=== PATIENT | male | born 1965 | race American Indian/Alaskan Native ===

== ENCOUNTER 2018-01-11 07:07 | Emergency (ER) | payer OTHER ==
[2018-01-11 07:15] VITALS: BP 155/89
--- NOTE | 2018-01-11 07:53 | Emergency Department Report ---
Upper Extremity - HPI Chief Complaint: Extremity Injury, Upper Stated Complaint: LT ARM PAIN Time Seen by Provider: 01/11/18 07:27 Upper Extremity: Left Elbow (swelling over olecranon, pain) Occurred When: >5 Days (1 week) Mechanism: Hit with Object Severity: moderate Symptoms: Yes Pain with Movement, Yes Limited Range of Movement, Yes Swelling, Yes Bruising/Ecchymosis, Yes Laceration or Abrasion, No Numbness, No Weakness Other History: This patient is a 52 y.o. male that presents with painful, swollen left elbow. He remember hiting elbow on something about 1 week ago. The pain was tolerable the first couple days. About 2-3 days after injury the elbow began to swell and he noticed a healed scab over the area. The pain is worse at the end of flexion and abduction. He is having difficulty reaching and sleeping. He complains of pain over the lateral olecranon area. He rates pain as 6/10 with movement or pressure. Denies numbness/tingling, fever, redness, or discharge. ED Review of Systems ROS: Stated complaint: LT ARM PAIN Other details as noted in HPI Constitutional: denies: chills, fever Respiratory: denies: cough, shortness of breath, wheezing Cardiovascular: denies: chest pain, palpitations, dyspnea on exertion Gastrointestinal: denies: abdominal pain, nausea, diarrhea Musculoskeletal: joint swelling (left elbow). denies: back pain, arthralgia Neurological: denies: headache, weakness, numbness, paresthesias ED Past Medical Hx - Past Medical History Hx Hypertension: Yes Hx Diabetes: Yes - Surgical History Past Surgical History?: No - Social History Smoking Status: Never Smoker Substance Use Type: Alcohol - Medications Home Medications: Home Medications Medication Instructions Recorded Confirmed Last Taken Type Glimepiride [Amaryl] 4 mg PO DAILY 30 Days tablet 01/11/18 Unknown Rx Indomethacin 50 mg PO Q8H PRN #20 capsule 01/11/18 Unknown Rx Prednisone [predniSONE 10 mg 10 mg PO .TAPER #1 tab.ds.pk 01/11/18 Unknown Rx (6-Day Pack, 21 Tabs)] Upper Extremity Exam - Exam General: Vital signs noted. No distress. Alert and acting appropriately. Head and Torso: Yes HEENT Abnormality, No Neck Tenderness, No Chest/Lungs Abnormality, No Abdominal Tenderness, No Back Tenderness Shoulder Exam: No Shoulder Tenderness, No Clavicle Tenderness, No Normal Range of Motion in Shoulder, No Shoulder Deformity, No AC Joint Tenderness Arm Exam: No Arm/Humerus Tenderness, No Arm Deformity Elbow: Yes Elbow Tenderness (Swelling over olecranon, Significant pain with ROM) , Yes Normal Range of Motion in Elbow (ROM limited to 60 degrees actively. Passive about 90 degrees.), No Elbow Deformity Forearm: No Forearm Tenderness, No Forearm Deformity, No Pain with Pronation, No Pain with Supination Wrist: Yes Normal ROM in Wrist, No Wrist Tenderness, No Wrist Deformity, No Snuffbox Tenderness, No Pain with Axial Thumb Compression Hand: Yes Normal ROM in Digit(s), No Hand Tenderness, No Hand Deformity, No Digit Tenderness, No Digit(s) Deformity, No Tendon Dysfunction CMS Exam: Yes Normal Distal Pulses, Yes Normal Capillary Refill, Yes Normal Distal Sensation, No Broken Skin ED Course Vital Signs 01/11/18 07:13 Temperature 98.9 F Pulse Rate 83 Respiratory 20 Rate Blood Pressure 155/89 O2 Sat by Pulse 99 Oximetry ED Medical Decision Making - Lab Data Result diagrams: 01/11/18 08:12 - Radiology Data Radiology results: report reviewed Left Elbow Xray Findings: There is no definite joint effusion noted. Soft tissue swelling is noted. There is tiny 2 mm fragment identified at the elbow joint between the radial head and the coracoid process of ulna probably related to recent or old injury. - Medical Decision Making This is a 52 y.o. male that presents with swelling over left olecranon area and pain with movement for 1 week. Hx of DM2 & HTN. He hit left elbow on something, not sure what object. Patient is stable and examined by me. Obtained BMP and Uric acid. Uric acid 9.0, glucose 231. Patient took personal metformin and glimperide in ER. Completed last glimperide pill and request refill until he get to PCP. Xray of left elbow. Findings: There is no definite joint effusion noted. Soft tissue swelling is noted. There is tiny 2 mm fragment identified at the elbow joint between the radial head and the coracoid process of ulna probably related to recent or old injury. No acute signs of distress noted. Given prednisone 50 mg po, ibuprofen 800 mg po once in ER for gout. Discussed plan to start prednisone taper and indomethacin 50 mg po tid with patient. Educated patient and spouse on low purine diet and given handout. Referral to Orthopedic for f/u of elbow injury. Patient agrees to ED plan of care. Discharged home and follow up with PCP in 3 days. Critical care attestation.: If time is entered above; I have spent that time in minutes in the direct care of this critically ill patient, excluding procedure time. ED Disposition Clinical Impression: Pain and swelling of left elbow Gout attack Qualifiers: Gout site: elbow Gout etiology: idiopathic Laterality: left Qualified Code(s): M10.022 - Idiopathic gout, left elbow Fracture of left elbow with delayed healing Qualifiers: Fracture type: closed Qualified Code(s): S42.402G - Unspecified fracture of lower end of left humerus, subsequent encounter for fracture with delayed healing Disposition: TO HOME OR SELFCARE Is pt being admited?: No Does the pt Need Aspirin: No Condition: Stable Instructions: Low Purine Diet (ED), Acute Gouty Arthritis (ED) Additional Instructions: Avoid foods that have a high purine content such as alcohol, organ meats, and seafood can cause higher risk of elevated uric acid and gout. Reduce intake of alcohol, especially beer, lowers the risk of gout. Reduce the intake of vegetables high in purines such as asparagus, spinach, and mushrooms. Dairy products reduce the risk of gout. Follow up with primary care provider in 2-3 days. Prescriptions: Glimepiride [Amaryl] 4 mg PO DAILY 30 Days tablet Indomethacin 50 mg PO Q8H PRN #20 capsule PRN Reason: Pain Prednisone [predniSONE 10 mg (6-Day Pack, 21 Tabs)] 10 mg PO .TAPER #1 tab.ds.pk Referrals: [facility] [Outside] - 3-5 Days [facility] [Outside] - 3-[address] [facility] [Outside] - 3-5 Days ANTHONY MARTINO MD [Staff Physician] - 3-5 Days Time of Disposition: 09:25 Print Language: SINHALA
[2018-01-11 08:57] LABS: BUN/Creatinine Ratio 20; Blood Urea Nitrogen 20 mg/dL (9-20); Calcium 9.3 mg/dL (8.4-10.2); Hemolysis Index 8
[2018-01-11] MEDS ORDERED: MOTRIN PO ONE (09:04)
[2018-01-11] MEDS ORDERED: DELTASONE PO ONE (09:04)
--- NOTE | 2018-01-11 09:21 | XRay Report ---
Left elbow 3 views: History: Swollen elbow pain injury. Findings: There is no definite joint effusion noted. Soft tissue swelling is noted. There is tiny 2 mm fragment identified at the elbow joint between the radial head and the coracoid process of ulna probably related to recent or old injury. Impression: Findings as detailed above.
== END 2018-01-11 09:41 | disposition home or self-care (01) ==
LOC: ED 07:07
DX: M10.022 Idiopathic gout, left elbow (principal); S42.402G Unspecified fracture of lower end of left humerus, subsequent encounter for fracture with delayed healing; I10 Essential (primary) hypertension; E11.9 Type 2 diabetes mellitus without complications; Z91.013 Allergy to seafood; Y93.89 Activity, other specified; Y92.89 Other specified places as the place of occurrence of the external cause; Y99.8 Other external cause status
CPT/HCPCS: 36415; 73080; 80048; 84550; 99283; J7512

== ENCOUNTER 2018-01-24 09:41 | Inpatient (IN) | payer OTHER ==
[2018-01-24 10:22] LABS: Basophils % (Auto) 0.4 % (0.0-1.8); Eosinophils # (Auto) 0.1 K/mm3 (0.0-0.4); Eosinophils % (Auto) 1.5 % (0.0-4.3); Hematocrit 36.4 % (35.5-45.6); Hemoglobin 11.5 gm/dl (11.8-15.2); Lymphocytes # (Auto) 0.6 K/mm3 (1.2-5.4); Lymphocytes % (Auto) 6.5 % (13.4-35.0); Mean Corpuscular HGB Conc 32 % (32-34); Mean Corpuscular Volume 78 fl (84-94); Monocytes # (Auto) 0.7 K/mm3 (0.0-0.8); Monocytes % (Auto) 7.1 % (0.0-7.3); Platelet Count 451 K/mm3 (140-440); Red Blood Count 4.69 M/mm3 (3.65-5.03); Red Cell Distribution Width 13.1 % (13.2-15.2)
[2018-01-24 10:26] LABS: Mean Corpuscular Hemoglobin 25 pg (28-32)
[2018-01-24 11:05] LABS: Calcium 9.3 mg/dL (8.4-10.2)
[2018-01-24] MEDS ORDERED: NACL 0.9% 1000 ML 2,000 ML IV ONE (11:05)
[2018-01-24] MEDS ORDERED: NACL 0.9% 1000 ML 1,000 ML IV ONE (11:15)
[2018-01-24] MEDS ORDERED: HumuLIN R IV ONE ×2 (11:15→13:34)
[2018-01-24] MEDS ORDERED: BOOSTRIX IM ONE (12:26)
[2018-01-24 12:55] LABS: Alanine Aminotransferase 9 units/L (7-56); Albumin 2.4 g/dL (3.9-5)
[2018-01-24 12:56] LABS: Bilirubin,Direct < 0.2 mg/dL (0-0.2)
[2018-01-24] MEDS ORDERED: VANCOMYCIN PHARMACY TO DOSE IV SCH (13:00)
[2018-01-24 13:17] LABS: INR 0.98 (0.87-1.13)
[2018-01-24 13:18] LABS: Partial Thromboplastin Time 28.1 Sec. (24.2-36.6)
[2018-01-24] MEDS: VANCOMYCIN 1,500 MG in NACL 0.9% 500 ML 500 ML IV SCH (13:21)
[2018-01-24 13:28] LABS: Creatine Kinase MB 1.8 ng/mL (0.0-4.0)
--- NOTE | 2018-01-24 13:57 | XRay Report ---
AP CHEST: HISTORY: Fever, sepsis AP view of the chest demonstrates a normal mediastinal and cardiac contour with clear lungs and normal bony and soft tissue structures. IMPRESSION: Unremarkable AP chest.
--- NOTE | 2018-01-24 13:58 | XRay Report ---
LEFT ELBOW, 2 VIEWS History: Elbow pain. Cellulitis. Findings: Normal bone mineralization. No acute osseous findings or joint pathology is identified. No significant degenerative changes. A large joint effusion is suspected. Posterior soft tissue swelling. Vascular calcifications are noted anteriorly. Impression: Soft tissue swelling. Large joint effusion. No osseous abnormality detected.
--- NOTE | 2018-01-24 13:58 | Emergency Department Report ---
ED General Adult HPI - General Chief complaint: Hyperglycemia Stated complaint: BLOOD SUGAR HIGH Time Seen by Provider: 01/24/18 11:09 Source: patient Mode of arrival: Ambulatory Limitations: No Limitations - History of Present Illness Initial comments: The patient was seen here on 01/11/2018 after hitting his elbow "on something about a week ago. He was found to have a elbow effusion, lactic acid level of 9 and no signs of infection. He was placed on Indocin and prednisone. He subsequently went to an orthopedic doctor that added allopurinol. He reports today to the emergency department because his sugar has been elevated for 2-3 days. He denies fever or chills. He did not mention the fact that his entire left arm was red and that his elbow was swollen. His stated that he had been diagnosed with gout. He has been compliant with the medicine given. He does not complain of significant elbow pain or arm discomfort. 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 He appears to have many healing mon particularly of the left forearm with some excoriation. He states he gets mon all the time at work. -: Gradual, week(s) Location: left, upper extremity (but is not complaining of pain) Improves with: none Worsens with: none Associated Symptoms: other (urinary frequency more than usual) - Related Data Previous Rx's Medication Instructions Recorded Last Taken Type Glimepiride [Amaryl] 4 mg PO DAILY 30 Days tablet 01/11/18 Unknown Rx Indomethacin 50 mg PO Q8H PRN #20 capsule 01/11/18 Unknown Rx Prednisone [predniSONE 10 mg 10 mg PO .TAPER #1 tab.ds.pk 01/11/18 Unknown Rx (6-Day Pack, 21 Tabs)] Allergies Allergy/AdvReac Type Severity Reaction Status Date / Time seafood Allergy Hives Uncoded 01/11/18 07:13 ED Review of Systems ROS: Stated complaint: BLOOD SUGAR HIGH Other details as noted in HPI Constitutional: denies: chills, fever Eyes: denies: eye pain, eye discharge, vision change ENT: denies: ear pain, throat pain Respiratory: denies: cough, shortness of breath, wheezing Cardiovascular: denies: chest pain, palpitations Endocrine: increased thirst, increased urine Gastrointestinal: denies: abdominal pain, nausea, diarrhea Genitourinary: denies: urgency, dysuria Musculoskeletal: as per HPI, joint swelling. denies: back pain Skin: as per HPI, rash, lesions Neurological: denies: headache, weakness, paresthesias Psychiatric: denies: anxiety, depression Hematological/Lymphatic: denies: easy bleeding, easy bruising ED Past Medical Hx - Past Medical History Hx Hypertension: Yes Hx Diabetes: Yes Additional medical history: GOUT which is a new diagnosis - Surgical History Past Surgical History?: No - Social History Smoking Status: Never Smoker Substance Use Type: None - Medications Home Medications: Home Medications Medication Instructions Recorded Confirmed Last Taken Type Glimepiride [Amaryl] 4 mg PO DAILY 30 Days tablet 01/11/18 Unknown Rx Indomethacin 50 mg PO Q8H PRN #20 capsule 01/11/18 Unknown Rx Prednisone [predniSONE 10 mg 10 mg PO .TAPER #1 tab.ds.pk 01/11/18 Unknown Rx (6-Day Pack, 21 Tabs)] ED Physical Exam - General Limitations: No Limitations General appearance: alert, in no apparent distress - Head Head exam: Present: atraumatic, normocephalic - Eye Eye exam: Present: normal appearance, PERRL, EOMI. Absent: scleral icterus - ENT ENT exam: Present: mucous membranes moist - Neck Neck exam: Present: normal inspection. Absent: tenderness, meningismus - Respiratory Respiratory exam: Present: normal lung sounds bilaterally. Absent: respiratory distress - Cardiovascular Cardiovascular Exam: Present: regular rate, normal rhythm. Absent: systolic murmur, diastolic murmur, rubs, gallop - GI/Abdominal GI/Abdominal exam: Present: soft, normal bowel sounds. Absent: distended, tenderness, guarding, rebound, rigid - Rectal Rectal exam: Present: deferred - Extremities Exam Extremities exam: Present: normal inspection, normal capillary refill. Absent: full ROM (range of motion of the elbow is somewhat limited on extension.Pronation supination is full and nontender. Flexion does not cause any pain. There appears to be a joint effusion. There is also some subacromial bursal induration.), calf tenderness - Back Exam Back exam: Present: normal inspection. Absent: CVA tenderness (R), CVA tenderness (L) - Neurological Exam Neurological exam: Present: alert, oriented X3, CN II-XII intact. Absent: motor sensory deficit - Psychiatric Psychiatric exam: Present: normal affect, normal mood - Skin Skin exam: Present: warm, other (the left arm is quite erythematous from the wrist only above the elbow. It is warm. It is consistent with cellulitis. There are old mon of various degrees of hyperpigmentation and healing. There are some excoriations. There is some induration of the posterior elbow/ subacromial bursal area but no fluctuance.). Absent: rash ED Course Vital Signs 01/24/18 09:49 Temperature 97.7 F Pulse Rate 101 H Respiratory 18 Rate Blood Pressure 137/70 O2 Sat by Pulse 99 Oximetry - Reevaluation(s) Reevaluation #1: Patient given IV insulin and IV fluids. I do not believe the patient is in DKA. I will order a repeat BMP. I discussed this with Dr. Stone who is admitted the patient to the hospitalist service for further care and evaluation. I have consulted Dr. Ma and gave him a report about the clinical findings. We agreed that a tap of the elbow would not be indicated at this juncture. There is too much overlying cellulitis. Clinical exam does not suggest a septic joint. 01/24/18 14:22 Reevaluation #2: The patient was started on vancomycin. Dr. Stone was informed. Consult to Dr. Ma. The patient was given fluids and IV insulin. Repeat BMP will be ordered. 01/24/18 14:41 ED Medical Decision Making - Lab Data Result diagrams: 01/24/18 10:06 01/24/18 10:06 Laboratory Results - last 24 hr 01/24/18 01/24/18 01/24/18 09:49 10:06 10:06 WBC 9.5 RBC 4.69 Hgb 11.5 L Hct 36.4 MCV 78 L MCH 25 L MCHC 32 RDW 13.1 L Plt Count 451 H Lymph % (Auto) 6.5 L [place] % (Auto) 7.1 Eos % (Auto) 1.5 Baso % (Auto) 0.4 Lymph # 0.6 L [place] # 0.7 Eos # 0.1 Baso # 0.0 Seg Neutrophils % 84.5 H Seg Neutrophils # 8.0 H ESR PT INR APTT VBG pH Sodium 123 L Potassium 5.0 Chloride 79.0 L Carbon Dioxide 26 Anion Gap 23 BUN 53 H Creatinine 2.4 H Estimated GFR 34 BUN/Creatinine Ratio 22 Glucose 656 H* POC Glucose > 500 H Lactic Acid Calcium 9.3 Magnesium Total Bilirubin Direct Bilirubin AST ALT Alkaline Phosphatase Total Creatine Kinase CK-MB (CK-2) CK-MB (CK-2) Rel Index C-Reactive Protein NT-Pro-B Natriuret Pep Total Protein Albumin Albumin/Globulin Ratio 01/24/18 01/24/18 01/24/18 10:06 10:06 10:06 WBC RBC Hgb Hct MCV MCH MCHC RDW Plt Count Lymph % (Auto) [place] % (Auto) Eos % (Auto) Baso % (Auto) Lymph # [place] # Eos # Baso # Seg Neutrophils % Seg Neutrophils # ESR 27 PT 13.5 INR 0.98 APTT 28.1 VBG pH 7.363 Sodium Potassium Chloride Carbon Dioxide Anion Gap BUN Creatinine Estimated GFR BUN/Creatinine Ratio Glucose POC Glucose Lactic Acid Calcium Magnesium Total Bilirubin Direct Bilirubin AST ALT Alkaline Phosphatase Total Creatine Kinase CK-MB (CK-2) CK-MB (CK-2) Rel Index C-Reactive Protein NT-Pro-B Natriuret Pep Total Protein Albumin Albumin/Globulin Ratio 01/24/18 01/24/18 01/24/18 10:06 10:06 12:27 WBC RBC Hgb Hct MCV MCH MCHC RDW Plt Count Lymph % (Auto) [place] % (Auto) Eos % (Auto) Baso % (Auto) Lymph # [place] # Eos # Baso # Seg Neutrophils % Seg Neutrophils # ESR PT INR APTT VBG pH Sodium Potassium Chloride Carbon Dioxide Anion Gap BUN Creatinine Estimated GFR BUN/Creatinine Ratio Glucose POC Glucose Lactic Acid 2.50 H* Calcium Magnesium 2.30 Total Bilirubin 0.40 Direct Bilirubin < 0.2 AST 9 ALT 9 Alkaline Phosphatase 93 Total Creatine Kinase 43 L CK-MB (CK-2) 1.8 CK-MB (CK-2) Rel Index 4.1 H C-Reactive Protein 13.80 H NT-Pro-B Natriuret Pep 207.6 Total Protein 7.3 Albumin 2.4 L Albumin/Globulin Ratio 0.5 01/24/18 13:18 WBC RBC Hgb Hct MCV MCH MCHC RDW Plt Count Lymph % (Auto) [place] % (Auto) Eos % (Auto) Baso % (Auto) Lymph # [place] # Eos # Baso # Seg Neutrophils % Seg Neutrophils # ESR PT INR APTT VBG pH Sodium Potassium Chloride Carbon Dioxide Anion Gap BUN Creatinine Estimated GFR BUN/Creatinine Ratio Glucose POC Glucose 466 H Lactic Acid Calcium Magnesium Total Bilirubin Direct Bilirubin AST ALT Alkaline Phosphatase Total Creatine Kinase CK-MB (CK-2) CK-MB (CK-2) Rel Index C-Reactive Protein NT-Pro-B Natriuret Pep Total Protein Albumin Albumin/Globulin Ratio - Radiology Data Radiology results: report reviewed interpreted by me: Chest x-ray and elbow film no acute process Critical care attestation.: If time is entered above; I have spent that time in minutes in the direct care of this critically ill patient, excluding procedure time. ED Disposition Clinical Impression: Cellulitis of forearm, left, Acute renal injury, Hyperglycemia Disposition: 09 OP ADMIT IP TO THIS HOSP Is pt being admited?: Yes Does the pt Need Aspirin: Yes Condition: Stable Referrals: PRIMARY CARE, [Primary Care Provider] - 3-5 Days Time of Disposition: 14:44
[2018-01-24] MEDS ORDERED: BABY ASPIRIN PO ONE (14:44)
--- NOTE | 2018-01-24 15:04 | History and Physical Report ---
History of Present Illness Date of examination: 01/24/18 Date of admission: 01/24/18 Chief complaint: CC high blood glucose levels L arm pain and elbow swelling.3 days History of present illness: History of Present Illness: 52 y/o AAOdilon presents to the emergency department because his sugar has been elevated for 2-3 days. He denies fever or chills. Also C/o left arm being red and that his elbow is swollen. His stated that he had been diagnosed with gout. He has been compliant with the medicine given. He does not complain of significant elbow pain or arm discomfort. 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 He has many healing mon particularly of the left forearm with some excoriation. He states he gets mon all the time at work. The patient was seen here on 01/11/2018 after hitting his elbow "on something about a week ago. He was found to have a elbow effusion, lactic acid level of 9 and no signs of infection. He was placed on Indocin and prednisone. He subsequently went to an orthopedic doctor that added allopurinol. No exacerbating or relieving factors. Past Medical History Hx Hypertension: Yes Hx Diabetes: Yes Additional medical history: GOUT which is a new diagnosis Surgical History Past Surgical History?: No Social History Smoking Status: Never Smoker Substance Use Type: None Family History Htn Medications Home Medications: Home Medications Medication Instructions Recorded Confirmed Last Taken Type Glimepiride [Amaryl] 4 mg PO DAILY 30 Days tablet 01/11/18 Unknown Rx Indomethacin 50 mg PO Q8H PRN #20 capsule 01/11/18 Unknown Rx Prednisone [predniSONE 10 mg 10 mg PO .TAPER #1 tab.ds.pk 01/11/18 Unknown Rx (6-Day Pack, 21 Tabs)] Review of Systems ROS: Stated complaint: BLOOD SUGAR HIGH Other details as noted in HPI Constitutional: denies: chills, fever Eyes: denies: eye pain, eye discharge, vision change ENT: denies: ear pain, throat pain Respiratory: denies: cough, shortness of breath, wheezing Cardiovascular: denies: chest pain, palpitations Endocrine: increased thirst, increased urine Gastrointestinal: denies: abdominal pain, nausea, diarrhea Genitourinary: denies: urgency, dysuria Musculoskeletal: as per HPI, joint swelling. denies: back pain Skin: as per HPI, rash, lesions Neurological: denies: headache, weakness, paresthesias Psychiatric: denies: anxiety, depression Hematological/Lymphatic: denies: easy bleeding, easy bruising Medications and Allergies Allergies Allergy/AdvReac Type Severity Reaction Status Date / Time seafood Allergy Hives Uncoded 01/11/18 07:13 Home Medications Medication Instructions Recorded Confirmed Last Taken Type Indomethacin 50 mg PO Q8H PRN #20 capsule 01/11/18 01/24/18 01/24/18 Rx Allopurinol [Zyloprim] 100 mg PO QDAY 01/24/18 01/24/18 01/24/18 History Aspirin [Aspirin EC] 81 mg PO DAILY 01/24/18 01/24/18 01/24/18 History Losartan/Hydrochlorothiazide 1 each PO DAILY 01/24/18 01/24/18 01/24/18 History [Losartan-Hctz 100-25 mg Tab] Metformin HCl [Glucophage] 1,000 mg PO BID 01/24/18 01/24/18 01/24/18 History Multivitamin [Multiple Vitamins] 1 each PO DAILY 01/24/18 01/24/18 01/24/18 History Active Meds: Active Medications Sodium Chloride (Nacl 0.9% 1000 Ml) 1,000 mls @ 250 mls/hr IV ONCE ONE Stop: 01/24/18 15:14 Last Admin: 01/24/18 12:37 Dose: 250 mls/hr Vancomycin HCl 1,500 mg/ (Sodium Chloride) 515 mls @ 333.333 mls/hr IV Q24H [facility] Last Admin: 01/24/18 13:21 Dose: 333.333 mls/hr Vancomycin HCl (Vancomycin Pharmacy To Dose) 1 each IV PKCONSULT [facility]; Protocol Exam - Constitutional Vitals: Temp Pulse Resp BP Pulse Ox 97.7 F 101 H 18 137/70 99 01/24/18 09:49 01/24/18 09:49 01/24/18 09:49 01/24/18 09:49 01/24/18 09:49 General appearance: Present: no acute distress, well-nourished - EENT Eyes: Present: PERRL ENT: hearing intact, clear oral mucosa - Neck Neck: Present: supple, normal ROM - Respiratory Respiratory effort: normal Respiratory: bilateral: CTA - Cardiovascular Heart rate: 80 Rhythm: regular Heart Sounds: Present: S1 & S2. Absent: rub, click - Extremities Extremities: no ischemia, pulses symmetrical, No edema, abnormal (L elbow swollen and red Warm to touch) Peripheral Pulses: within normal limits - Abdominal General gastrointestinal: Present: soft, non-tender, non-distended, normal bowel sounds Male genitourinary: Present: normal - Integumentary Integumentary: Present: clear, warm, dry - Musculoskeletal Musculoskeletal: gait normal, strength equal bilaterally - Psychiatric Psychiatric: appropriate mood/affect, intact judgment & insight - Neurologic Neurologic: CNII-XII intact, moves all extremities Results - Labs CBC & Chem 7: 01/24/18 10:06 01/24/18 15:03 Labs: Laboratory Last Values WBC 9.5 K/mm3 (4.5-11.0) 01/24/18 10:06 RBC 4.69 M/mm3 (3.65-5.03) 01/24/18 10:06 Hgb 11.5 gm/dl (11.8-15.2) L 01/24/18 10:06 Hct 36.4 % (35.5-45.6) 01/24/18 10:06 MCV 78 fl (84-94) L 01/24/18 10:06 MCH 25 pg (28-32) L 01/24/18 10:06 MCHC 32 % (32-34) 01/24/18 10:06 RDW 13.1 % (13.2-15.2) L 01/24/18 10:06 Plt Count 451 K/mm3 (140-440) H 01/24/18 10:06 Lymph % (Auto) 6.5 % (13.4-35.0) L 01/24/18 10:06 [place] % (Auto) 7.1 % (0.0-7.3) 01/24/18 10:06 Eos % (Auto) 1.5 % (0.0-4.3) 01/24/18 10:06 Baso % (Auto) 0.4 % (0.0-1.8) 01/24/18 10:06 Lymph # 0.6 K/mm3 (1.2-5.4) L 01/24/18 10:06 [place] # 0.7 K/mm3 (0.0-0.8) 01/24/18 10:06 Eos # 0.1 K/mm3 (0.0-0.4) 01/24/18 10:06 Baso # 0.0 K/mm3 (0.0-0.1) 01/24/18 10:06 Seg Neutrophils % 84.5 % (40.0-70.0) H 01/24/18 10:06 Seg Neutrophils # 8.0 K/mm3 (1.8-7.7) H 01/24/18 10:06 ESR 27 mm/Hr (0-20) 01/24/18 10:06 PT 13.5 Sec. (12.2-14.9) 01/24/18 10:06 INR 0.98 (0.87-1.13) 01/24/18 10:06 APTT 28.1 Sec. (24.2-36.6) 01/24/18 10:06 VBG pH 7.363 (7.320-7.420) 01/24/18 10:06 Sodium 123 mmol/L (137-145) L 01/24/18 10:06 Potassium 5.0 mmol/L (3.6-5.0) 01/24/18 10:06 Chloride 79.0 mmol/L (98-107) L 01/24/18 10:06 Carbon Dioxide 26 mmol/L (22-30) 01/24/18 10:06 Anion Gap 23 mmol/L 01/24/18 10:06 BUN 53 mg/dL (9-20) H 01/24/18 10:06 Creatinine 2.4 mg/dL (0.8-1.5) H 01/24/18 10:06 Estimated GFR 34 ml/min 01/24/18 10:06 BUN/Creatinine Ratio 22 % 01/24/18 10:06 Glucose 656 mg/dL (75-100) H* 01/24/18 10:06 POC Glucose 466 (70-105) H 01/24/18 13:18 Lactic Acid 2.50 mmol/L (0.7-2.0) H* 01/24/18 10:06 Calcium 9.3 mg/dL (8.4-10.2) 01/24/18 10:06 Magnesium 2.30 mg/dL (1.7-2.3) 01/24/18 10:06 Total Bilirubin 0.40 mg/dL (0.1-1.2) 01/24/18 12:27 Direct Bilirubin < 0.2 mg/dL (0-0.2) 01/24/18 12:27 AST 9 units/L (5-40) 01/24/18 12:27 ALT 9 units/L (7-56) 01/24/18 12:27 Alkaline Phosphatase 93 units/L (35-129) 01/24/18 12:27 Total Creatine Kinase 43 units/L (55-170) L 01/24/18 10:06 CK-MB (CK-2) 1.8 ng/mL (0.0-4.0) 01/24/18 10:06 CK-MB (CK-2) Rel Index 4.1 (0-4) H 01/24/18 10:06 C-Reactive Protein 13.80 mg/dL (0.00-1.30) H 01/24/18 12:27 NT-Pro-B Natriuret Pep 207.6 pg/mL (0-900) 01/24/18 10:06 Total Protein 7.3 g/dL (6.3-8.2) 01/24/18 12:27 Albumin 2.4 g/dL (3.9-5) L 01/24/18 12:27 Albumin/Globulin Ratio 0.5 % 01/24/18 12:27 - Imaging and Cardiology EKG: report reviewed Chest x-ray: report reviewed (NAF) Imaging and Cardiology: L Elbow x ray NAF Assessment and Plan Advance Directives: Yes (Full code) VTE prophylaxis?: Chemical Plan of care discussed with patient/family: Yes - Patient Problems (1) Sepsis Current Visit: Yes Status: Acute Qualifiers: Sepsis type: sepsis due to unspecified organism Qualified Code(s): A41.9 - Sepsis, unspecified organism Plan to address problem: patient meets criteria for sepsis Started on Unasyn and Vancomycin (2) PAWAN (acute kidney injury) Current Visit: Yes Status: Acute Plan to address problem: Sec to Indocin and dehydration IV fluids for now Stop Indocin Vasomotor Nephropathy (3) Cellulitis of forearm, left Current Visit: Yes Status: Acute Plan to address problem: As in Sepsis Also consulted Dr Ma (4) Hyperosmolar non-ketotic state in patient with type 2 diabetes mellitus Current Visit: Yes Status: Acute Plan to address problem: Managed with High doses of sliding scale. BG came down in ED hence admission to Floor. Will defer to Hospitalist team reg Discharge regimen for uncontrolled Hyperglycemia Will initiate LA insulin for time being (5) Gout Current Visit: Yes Status: Acute Qualifiers: Gout site: elbow Laterality: left Plan to address problem: Allopurinol decreased to 100 mg for further prevention of Gout attacks (6) HTN (hypertension) Current Visit: Yes Status: Chronic Qualifiers: Hypertension type: essential hypertension Qualified Code(s): I10 - Essential (primary) hypertension Plan to address problem: Cont Antihypertensives HCTZ part of Losartan/Hctz was discontinued b/o PAWAN Added coreg (7) DVT prophylaxis Current Visit: Yes Status: Acute Plan to address problem: on Heparin
[2018-01-24] MEDS ORDERED: ZOFRAN IV PRN (15:06)
[2018-01-24] MEDS ORDERED: SODIUM CHLORIDE FLUSH SYRINGE 10 ML IV PRN (15:06)
[2018-01-24] MEDS ORDERED: AMBIEN PO PRN (15:06)
[2018-01-24 15:30] LABS: BUN/Creatinine Ratio 16; Blood Urea Nitrogen 19 mg/dL (9-20); Calcium 9.6 mg/dL (8.4-10.2); Hemolysis Index 8
[2018-01-24] MEDS: HumaLOG SUB-Q SCH ×2 (19:09→22:04)
[2018-01-24] MEDS: NACL 0.9% 1000 ML 1,000 ML IV SCH (19:10)
[2018-01-24] MEDS: UNASYN/NS 3 GM/100 ML 3 GM/100 ML BAG IV SCH (19:30)
[2018-01-24] MEDS: TYLENOL PO PRN (21:55)
[2018-01-24] MEDS: SODIUM CHLORIDE FLUSH SYRINGE 10 ML IV SCH (21:59)
[2018-01-25] MEDS: UNASYN/NS 3 GM/100 ML 3 GM/100 ML BAG IV SCH ×4 (00:39→17:45)
[2018-01-25] MEDS: NACL 0.9% 1000 ML 1,000 ML IV SCH ×3 (06:17→22:11)
[2018-01-25 07:03] LABS: Basophils % (Auto) 0.5 % (0.0-1.8); Eosinophils # (Auto) 0.2 K/mm3 (0.0-0.4); Eosinophils % (Auto) 2.5 % (0.0-4.3); Hematocrit 30.7 % (35.5-45.6); Hemoglobin 9.8 gm/dl (11.8-15.2); Lymphocytes # (Auto) 0.7 K/mm3 (1.2-5.4); Lymphocytes % (Auto) 7.5 % (13.4-35.0); Mean Corpuscular HGB Conc 32 % (32-34); Mean Corpuscular Volume 76 fl (84-94); Monocytes # (Auto) 0.8 K/mm3 (0.0-0.8); Monocytes % (Auto) 9.2 % (0.0-7.3); Platelet Count 382 K/mm3 (140-440); Red Blood Count 4.02 M/mm3 (3.65-5.03); Red Cell Distribution Width 13.1 % (13.2-15.2)
[2018-01-25 07:08] LABS: Mean Corpuscular Hemoglobin 24 pg (28-32)
[2018-01-25 07:30] LABS: Calcium 8.3 mg/dL (8.4-10.2)
[2018-01-25] MEDS: HumaLOG SUB-Q SCH ×4 (08:54→21:59)
[2018-01-25] MEDS: COZAAR PO SCH (09:53)
[2018-01-25] MEDS: COREG PO SCH ×2 (09:54→21:59)
[2018-01-25] MEDS: AMARYL PO SCH (09:54)
[2018-01-25] MEDS: HALFPRIN EC PO SCH (09:55)
[2018-01-25] MEDS: HEPARIN SUB-Q SCH ×2 (09:55→22:01)
[2018-01-25] MEDS: ZYLOPRIM PO SCH (10:02)
[2018-01-25] MEDS: SODIUM CHLORIDE FLUSH SYRINGE 10 ML IV SCH ×2 (10:03→22:12)
--- NOTE | 2018-01-25 11:04 | Progress Note ---
Assessment and Plan Assessment and plan: Sepsis patient meets criteria for sepsis Started on Unasyn and Vancomycin PAWAN (acute kidney injury) Sec to Indocin, dehydration/vasomotor nephropathy and sepsis/ATN Continued IV fluids for now Stop Indocin Improving. Check renal ultrasound Cellulitis of forearm, left Orthopedics consultation pending Hyperosmolar non-ketotic state in patient with type 2 diabetes mellitus Managed with High doses of sliding scale. Continue long-acting insulin Gout Allopurinol decreased to 100 mg for further prevention of Gout attacks HTN (hypertension) Cont Antihypertensives HCTZ part of Losartan/Hctz was discontinued b/o PAWAN Added coreg DVT prophylaxis on Heparin History Interval history: Patient complains of left elbow pain. Hospitalist Physical - Constitutional Vitals: Temp Pulse Resp BP Pulse Ox 99.8 F H 87 20 141/79 96 01/25/18 08:55 01/25/18 08:55 01/25/18 08:55 01/25/18 09:54 01/25/18 08:55 General appearance: Present: no acute distress, well-nourished - EENT Eyes: Present: PERRL, EOM intact ENT: hearing intact, clear oral mucosa, dentition normal - Neck Neck: Present: supple, normal ROM - Respiratory Respiratory effort: normal Respiratory: bilateral: CTA - Cardiovascular Rhythm: regular Heart Sounds: Present: S1 & S2. Absent: gallop, rub - Extremities Extremities: no ischemia, No edema, abnormal (left elbow swelling and tenderness.) - Abdominal General gastrointestinal: soft, non-tender, non-distended, normal bowel sounds - Integumentary Integumentary: Present: clear, warm, dry - Neurologic Neurologic: CNII-XII intact, moves all extremities Results - Labs CBC & Chem 7: 01/25/18 06:13 01/25/18 06:13 Labs: Laboratory Last Values WBC 9.1 K/mm3 (4.5-11.0) 01/25/18 06:13 RBC 4.02 M/mm3 (3.65-5.03) 01/25/18 06:13 Hgb 9.8 gm/dl (11.8-15.2) L 01/25/18 06:13 Hct 30.7 % (35.5-45.6) L 01/25/18 06:13 MCV 76 fl (84-94) L 01/25/18 06:13 MCH 24 pg (28-32) L 01/25/18 06:13 MCHC 32 % (32-34) 01/25/18 06:13 RDW 13.1 % (13.2-15.2) L 01/25/18 06:13 Plt Count 382 K/mm3 (140-440) 01/25/18 06:13 Lymph % (Auto) 7.5 % (13.4-35.0) L 01/25/18 06:13 [place] % (Auto) 9.2 % (0.0-7.3) H 01/25/18 06:13 Eos % (Auto) 2.5 % (0.0-4.3) 01/25/18 06:13 Baso % (Auto) 0.5 % (0.0-1.8) 01/25/18 06:13 Lymph # 0.7 K/mm3 (1.2-5.4) L 01/25/18 06:13 [place] # 0.8 K/mm3 (0.0-0.8) 01/25/18 06:13 Eos # 0.2 K/mm3 (0.0-0.4) 01/25/18 06:13 Baso # 0.0 K/mm3 (0.0-0.1) 01/25/18 06:13 Seg Neutrophils % 80.3 % (40.0-70.0) H 01/25/18 06:13 Seg Neutrophils # 7.3 K/mm3 (1.8-7.7) 01/25/18 06:13 ESR 27 mm/Hr (0-20) 01/24/18 10:06 PT 13.5 Sec. (12.2-14.9) 01/24/18 10:06 INR 0.98 (0.87-1.13) 01/24/18 10:06 APTT 28.1 Sec. (24.2-36.6) 01/24/18 10:06 VBG pH 7.363 (7.320-7.420) 01/24/18 10:06 Sodium 132 mmol/L (137-145) L D 01/25/18 06:13 Potassium 4.4 mmol/L (3.6-5.0) 01/25/18 06:13 Chloride 94.2 mmol/L (98-107) L 01/25/18 06:13 Carbon Dioxide 22 mmol/L (22-30) 01/25/18 06:13 Anion Gap 20 mmol/L 01/25/18 06:13 BUN 36 mg/dL (9-20) H 01/25/18 06:13 Creatinine 1.5 mg/dL (0.8-1.5) 01/25/18 06:13 Estimated GFR 59 ml/min 01/25/18 06:13 BUN/Creatinine Ratio 24 % 01/25/18 06:13 Glucose 275 mg/dL (75-100) H 01/25/18 06:13 POC Glucose 307 (70-105) H 01/25/18 06:37 Hemoglobin A1c 11.2 % (4-6) H 01/24/18 15:34 Ketones Quantitative Negative (Negative) 01/24/18 15:03 Lactic Acid 2.00 mmol/L (0.7-2.0) 01/24/18 20:23 Calcium 8.3 mg/dL (8.4-10.2) L 01/25/18 06:13 Magnesium 2.30 mg/dL (1.7-2.3) 01/24/18 10:06 Total Bilirubin 0.40 mg/dL (0.1-1.2) 01/24/18 12:27 Direct Bilirubin < 0.2 mg/dL (0-0.2) 01/24/18 12:27 AST 9 units/L (5-40) 01/24/18 12:27 ALT 9 units/L (7-56) 01/24/18 12:27 Alkaline Phosphatase 93 units/L (35-129) 01/24/18 12:27 Total Creatine Kinase 43 units/L (55-170) L 01/24/18 10:06 CK-MB (CK-2) 1.8 ng/mL (0.0-4.0) 01/24/18 10:06 CK-MB (CK-2) Rel Index 4.1 (0-4) H 01/24/18 10:06 C-Reactive Protein 13.80 mg/dL (0.00-1.30) H 01/24/18 12:27 NT-Pro-B Natriuret Pep 207.6 pg/mL (0-900) 01/24/18 10:06 Total Protein 7.3 g/dL (6.3-8.2) 01/24/18 12:27 Albumin 2.4 g/dL (3.9-5) L 01/24/18 12:27 Albumin/Globulin Ratio 0.5 % 01/24/18 12:27
--- NOTE | 2018-01-25 13:12 | Ultrasound Report ---
Renal sonogram: History: ARF Findings: Right kidney 11.2 x 6.1 x 6 cm. Cortical thickness is 1.7 cm. No mass. No hydronephrosis. Left kidney 12.6 x 6.2 x 5.8 cm. Cortical thickness is 1.7 cm. No mass. No hydronephrosis. Impression: Essentially negative renal sonogram.
[2018-01-25] MEDS: VANCOMYCIN 1,500 MG in NACL 0.9% 500 ML 500 ML IV SCH (14:53)
--- NOTE | 2018-01-25 15:43 | Consultation ---
History of Present Illness - Reason for Consult Consult date: 01/25/18 acute renal failure Requesting physician: LEXIS DUNBAR - History of Present Illness This is a 52 y/o male with PMH of DM type 2 non-insulin dependent, HTN, and gout who presented to [facility] yesterday with c/o elevated blood glucose level, left arm redness/elbow swelling, and decreased appetite/oral intake. Patient was apparently here on 01/11/18 after hitting his elbow, diagnosed with elbow effusion, placed on indomethacin and prednisone. Patient recently started on allopurinol for gout as outpatient. On admission, SCr level was 1.2, increased to 1.5 today. Patient denies recent antibiotics, no known h/o kidney problems. We were consulted to evaluate this patient who has PAWAN and nephrology consultation requested. Medications and Allergies Allergies Allergy/AdvReac Type Severity Reaction Status Date / Time seafood Allergy Hives Uncoded 01/11/18 07:13 Home Medications Medication Instructions Recorded Confirmed Last Taken Type Indomethacin 50 mg PO Q8H PRN #20 capsule 01/11/18 01/24/18 01/24/18 Rx Allopurinol [Zyloprim] 100 mg PO QDAY 01/24/18 01/24/18 01/24/18 History Aspirin [Aspirin EC] 81 mg PO DAILY 01/24/18 01/24/18 01/24/18 History Losartan/Hydrochlorothiazide 1 each PO DAILY 01/24/18 01/24/18 01/24/18 History [Losartan-Hctz 100-25 mg Tab] Metformin HCl [Glucophage] 1,000 mg PO BID 01/24/18 01/24/18 01/24/18 History Multivitamin [Multiple Vitamins] 1 each PO DAILY 01/24/18 01/24/18 01/24/18 History Active Meds: Active Medications Acetaminophen (Tylenol) 650 mg PO Q4H PRN PRN Reason: Pain MILD(1-3)/Fever >100.5/BRANDON Last Admin: 01/24/18 21:55 Dose: 650 mg Allopurinol (Zyloprim) 100 mg PO QDAY [facility] Last Admin: 01/25/18 10:02 Dose: 100 mg Aspirin (Halfprin Ec) 81 mg PO DAILY [facility] Last Admin: 01/25/18 09:55 Dose: 81 mg Carvedilol (Coreg) 6.25 mg PO BID [facility] Last Admin: 01/25/18 09:54 Dose: 6.25 mg Glimepiride (Amaryl) 4 mg PO DAILY [facility] Last Admin: 01/25/18 09:54 Dose: 4 mg Heparin Sodium (Porcine) (Heparin) 5,000 unit SUB-Q Q12HR [facility] Last Admin: 01/25/18 09:55 Dose: 5,000 unit Vancomycin HCl 1,500 mg/ (Sodium Chloride) 515 mls @ 333.333 mls/hr IV Q24H [facility] Last Admin: 01/25/18 14:53 Dose: 333.333 mls/hr Sodium Chloride (Nacl 0.9% 1000 Ml) 1,000 mls @ 125 mls/hr IV DIRECT [facility] Last Admin: 01/25/18 06:17 Dose: 125 mls/hr Ampicillin Sodium/Sulbactam Sodium (Unasyn/Ns 3 Gm/100 Ml) 3 gm in 100 mls @ 100 mls/hr IV Q6HR [facility]; Protocol Last Admin: 01/25/18 13:54 Dose: 100 mls/hr Insulin Glargine (Lantus) 10 units SUB-Q QHS [facility] Insulin Human Lispro (Humalog) 0 unit SUB-Q ACHS [facility]; Protocol Last Admin: 01/25/18 13:53 Dose: 8 unit Losartan Potassium (Cozaar) 100 mg PO QDAY [facility] Last Admin: 01/25/18 09:53 Dose: 100 mg Ondansetron HCl (Zofran) 4 mg IV Q8H PRN PRN Reason: Nausea And Vomiting Sodium Chloride (Sodium Chloride Flush Syringe 10 Ml) 10 ml IV BID [facility] Last Admin: 01/25/18 10:03 Dose: 10 ml Sodium Chloride (Sodium Chloride Flush Syringe 10 Ml) 10 ml IV PRN PRN PRN Reason: LINE FLUSH Vancomycin HCl (Vancomycin Pharmacy To Dose) 1 each IV PKCONSULT [facility]; Protocol Zolpidem Tartrate (Ambien) 5 mg PO QHS PRN PRN Reason: Insomnia Review of Systems Constitutional: fatigue, poor appetite Cardiovascular: no chest pain, no lightheadedness, no shortness of breath, no dyspnea on exertion Respiratory: no shortness of breath, no dyspnea on exertion Gastrointestinal: loss of appetite, no abdominal pain, no nausea, no vomiting, no diarrhea, no constipation, no hematemesis, no melena Genitourinary Male: no dysuria, no hematuria Musculoskeletal: other (left elbow swelling/pain) Integumentary: other (left elbow swelling) Neurological: no paralysis, no numbness, no tingling, no seizures, no headaches Psychiatric: no anxiety, no depression Endocrine: high blood sugars Exam - Vital Signs Vital signs: Vital Signs Temp Pulse Resp BP Pulse Ox 97.7 F 101 H 18 137/70 99 01/24/18 09:49 01/24/18 09:49 01/24/18 09:49 01/24/18 09:49 01/24/18 09:49 - General Appearance General appearance: well-nourished (no acute distress) EENT: ATNC Neck: Present: neck supple Respiratory: Other (Lung sounds decreased bilaterally, unlabored) Heart: regular, S1S2 Gastrointestinal: Present: normoactive bowel sounds. Absent: tenderness Integumentary: warm and dry Neurologic: alert and oriented x3 Musculoskeletal: Present: joint swelling (left elbow swelling/pain) Psychiatric: mood/affect appropriate, cooperative Results - Lab Results 01/25/18 06:13 01/25/18 06:13 Most recent lab results Calcium 8.3 mg/dL (8.4-10.2) L 01/25/18 06:13 Magnesium 2.30 mg/dL (1.7-2.3) 01/24/18 10:06 Assessment and Plan Left forearm cellulitis: Sepsis: -Started on vancomcyin and unasyn -Consulted Dr Ma Hyperosmolar non-ketotic state with underlying Diabetes Mellitus Type 2: -On SSI, lantus, and glimepiride -On IV fluids -As per primary team Hyponatremia in setting of hyperglycemia and poor oral intake: -On admission, serum sodium level was 123 in setting of hyperglycemia (blood glucose level of 656) -Calculated sodium correction of 123 in setting of blood glucose (BG) level of 656 was 132 -Serum sodium level was 132 with corrected sodium of 135 today in setting of BG level of 307), yesterday's sodium level was 141 -Decrease 0.9% NS infusion to 75 ml/hr Acute Kidney Injury possibly secondary to prerenal/ questionable AIN from NSAIDs , r/o obstruction: -Renal function reviewed, SCr level increased to 1.5 today, yesterday's SCr level was 1.2 (SCr 2.4 on admission) -Renally dose meds -Indomethacin stopped -Avoid nephrotoxic agents -S/p renal ultrasound on 01/25/18 showed no hydronephrosis -Obtain urine lytes -Decrease 0.9% NS infusion to 75 ml/hr -Holding home losartan-HCTZ for now, currently on losartan 100 mg orally once a day, monitor renal function closely, if renal function worsens, may need to hold losartan -Renal plan discussed with Dr Navas -Continue supportive therapy Hypertension: -Holding losartan-HCTZ in setting of PAWAN -On coreg and losartan, adjust regimen if needed Gout: -On allopurinol DVT Prophylaxis: -On heparin
[2018-01-25] MEDS: TYLENOL PO PRN (20:21)
[2018-01-25] MEDS: LANTUS SUB-Q SCH (22:05)
[2018-01-26] MEDS: UNASYN/NS 3 GM/100 ML 3 GM/100 ML BAG IV SCH ×4 (05:46→17:18)
[2018-01-26 06:43] LABS: Basophils % (Auto) 0.6 % (0.0-1.8); Eosinophils # (Auto) 0.3 K/mm3 (0.0-0.4); Eosinophils % (Auto) 3.2 % (0.0-4.3); Hematocrit 29.8 % (35.5-45.6); Hemoglobin 9.6 gm/dl (11.8-15.2); Lymphocytes # (Auto) 0.9 K/mm3 (1.2-5.4); Lymphocytes % (Auto) 10.4 % (13.4-35.0); Mean Corpuscular HGB Conc 32 % (32-34); Mean Corpuscular Volume 76 fl (84-94); Monocytes # (Auto) 0.7 K/mm3 (0.0-0.8); Monocytes % (Auto) 8.8 % (0.0-7.3); Platelet Count 361 K/mm3 (140-440); Red Cell Distribution Width 12.9 % (13.2-15.2)
[2018-01-26 06:51] LABS: BUN/Creatinine Ratio 18; Blood Urea Nitrogen 22 mg/dL (9-20); Calcium 8.3 mg/dL (8.4-10.2); Hemolysis Index 1
[2018-01-26 06:52] LABS: Mean Corpuscular Hemoglobin 25 pg (28-32)
[2018-01-26] MEDS: HumaLOG SUB-Q SCH ×4 (08:22→22:04)
--- NOTE | 2018-01-26 10:29 | Progress Note ---
Assessment and Plan Assessment and plan: Sepsis patient meets criteria for sepsis Started on Unasyn and Vancomycin PAWAN (acute kidney injury) Sec to Indocin, dehydration/vasomotor nephropathy and sepsis/ATN Continued IV fluids for now Stop Indocin Improving. Check renal ultrasound Cellulitis of forearm, left Orthopedics consultation pending. MRI of the left elbow to rule out septic arthritis. Hyperosmolar non-ketotic state in patient with type 2 diabetes mellitus Managed with High doses of sliding scale. Continue long-acting insulin Gout Allopurinol decreased to 100 mg for further prevention of Gout attacks HTN (hypertension) Cont Antihypertensives HCTZ part of Losartan/Hctz was discontinued b/o PAWAN Added coreg DVT prophylaxis on Heparin History Interval history: Patient complains of left elbow pain. Hospitalist Physical - Constitutional Vitals: Temp Pulse Resp BP Pulse Ox 99.2 F 68 18 150/75 98 01/26/18 08:12 01/26/18 08:12 01/26/18 08:12 01/26/18 08:12 01/26/18 08:12 General appearance: Present: no acute distress, well-nourished Results - Labs CBC & Chem 7: 01/26/18 05:43 01/26/18 05:43 Labs: Laboratory Last Values WBC 8.3 K/mm3 (4.5-11.0) 01/26/18 05:43 RBC 3.90 M/mm3 (3.65-5.03) 01/26/18 05:43 Hgb 9.6 gm/dl (11.8-15.2) L 01/26/18 05:43 Hct 29.8 % (35.5-45.6) L 01/26/18 05:43 MCV 76 fl (84-94) L 01/26/18 05:43 MCH 25 pg (28-32) L 01/26/18 05:43 MCHC 32 % (32-34) 01/26/18 05:43 RDW 12.9 % (13.2-15.2) L 01/26/18 05:43 Plt Count 361 K/mm3 (140-440) 01/26/18 05:43 Lymph % (Auto) 10.4 % (13.4-35.0) L 01/26/18 05:43 [place] % (Auto) 8.8 % (0.0-7.3) H 01/26/18 05:43 Eos % (Auto) 3.2 % (0.0-4.3) 01/26/18 05:43 Baso % (Auto) 0.6 % (0.0-1.8) 01/26/18 05:43 Lymph # 0.9 K/mm3 (1.2-5.4) L 01/26/18 05:43 [place] # 0.7 K/mm3 (0.0-0.8) 01/26/18 05:43 Eos # 0.3 K/mm3 (0.0-0.4) 01/26/18 05:43 Baso # 0.0 K/mm3 (0.0-0.1) 01/26/18 05:43 Seg Neutrophils % 77.0 % (40.0-70.0) H 01/26/18 05:43 Seg Neutrophils # 6.4 K/mm3 (1.8-7.7) 01/26/18 05:43 ESR 27 mm/Hr (0-20) 01/24/18 10:06 PT 13.5 Sec. (12.2-14.9) 01/24/18 10:06 INR 0.98 (0.87-1.13) 01/24/18 10:06 APTT 28.1 Sec. (24.2-36.6) 01/24/18 10:06 VBG pH 7.363 (7.320-7.420) 01/24/18 10:06 Sodium 132 mmol/L (137-145) L 01/26/18 05:43 Potassium 4.0 mmol/L (3.6-5.0) 01/26/18 05:43 Chloride 93.9 mmol/L (98-107) L 01/26/18 05:43 Carbon Dioxide 23 mmol/L (22-30) 01/26/18 05:43 Anion Gap 19 mmol/L 01/26/18 05:43 BUN 22 mg/dL (9-20) H 01/26/18 05:43 Creatinine 1.2 mg/dL (0.8-1.5) 01/26/18 05:43 Estimated GFR > 60 ml/min 01/26/18 05:43 BUN/Creatinine Ratio 18 % 01/26/18 05:43 Glucose 209 mg/dL (75-100) H 01/26/18 05:43 POC Glucose 244 (70-105) H 01/26/18 05:28 Hemoglobin A1c 11.2 % (4-6) H 01/24/18 15:34 Ketones Quantitative Negative (Negative) 01/24/18 15:03 Lactic Acid 2.00 mmol/L (0.7-2.0) 01/24/18 20:23 Calcium 8.3 mg/dL (8.4-10.2) L 01/26/18 05:43 Phosphorus 3.20 mg/dL (2.5-4.5) 01/26/18 05:43 Magnesium 1.80 mg/dL (1.7-2.3) 01/26/18 05:43 Total Bilirubin 0.40 mg/dL (0.1-1.2) 01/24/18 12:27 Direct Bilirubin < 0.2 mg/dL (0-0.2) 01/24/18 12:27 AST 9 units/L (5-40) 01/24/18 12:27 ALT 9 units/L (7-56) 01/24/18 12:27 Alkaline Phosphatase 93 units/L (35-129) 01/24/18 12:27 Total Creatine Kinase 43 units/L (55-170) L 01/24/18 10:06 CK-MB (CK-2) 1.8 ng/mL (0.0-4.0) 01/24/18 10:06 CK-MB (CK-2) Rel Index 4.1 (0-4) H 01/24/18 10:06 C-Reactive Protein 13.80 mg/dL (0.00-1.30) H 01/24/18 12:27 NT-Pro-B Natriuret Pep 207.6 pg/mL (0-900) 01/24/18 10:06 Total Protein 7.3 g/dL (6.3-8.2) 01/24/18 12:27 Albumin 2.4 g/dL (3.9-5) L 01/24/18 12:27 Albumin/Globulin Ratio 0.5 % 01/24/18 12:27 PTH Intact 59.15 pg/mL (15-65) 01/26/18 05:43
[2018-01-26] MEDS: HALFPRIN EC PO SCH (11:08)
[2018-01-26] MEDS: COZAAR PO SCH (11:08)
[2018-01-26] MEDS: ZYLOPRIM PO SCH (11:09)
[2018-01-26] MEDS: COREG PO SCH ×2 (11:09→21:38)
[2018-01-26] MEDS: AMARYL PO SCH (11:09)
[2018-01-26] MEDS: HEPARIN SUB-Q SCH ×2 (11:10→21:45)
[2018-01-26] MEDS: SODIUM CHLORIDE FLUSH SYRINGE 10 ML IV SCH ×2 (11:11→21:40)
[2018-01-26] MEDS: NACL 0.9% 1000 ML 1,000 ML IV SCH (11:16)
--- NOTE | 2018-01-26 11:53 | Progress Note ---
Assessment and Plan Left forearm cellulitis: Sepsis: -On vancomcyin and unasyn -Consulted Dr Ma Hyperosmolar non-ketotic state with underlying Diabetes Mellitus Type 2: -On SSI, lantus, and glimepiride -On IV fluids -As per primary team Hyponatremia in setting of hyperglycemia and poor oral intake: -On admission, calculated sodium correction of 123 in setting of blood glucose ( BG) level of 656 was 132 -Serum sodium level was 132 today -On 0.9% NS infusion to 75 ml/hr Acute Kidney Injury possibly secondary to prerenal/ questionable AIN from NSAIDs , r/o obstruction: -Renal function reviewed, gradually improving, SCr level decreased to 1.2 today , yesterday's SCr level was 1.5 (SCr 2.4 on admission) -Renally dose meds -Indomethacin stopped -Avoid nephrotoxic agents -S/p renal ultrasound on 01/25/18 showed no hydronephrosis -On 0.9% NS infusion to 75 ml/hr -Holding home losartan-HCTZ for now, currently on losartan 100 mg orally once a day, monitor renal function closely, if renal function worsens, may need to hold losartan -Renal plan discussed with Dr Navas -Continue supportive therapy Hypertension: -Holding losartan-HCTZ in setting of PAWAN -On coreg and losartan, adjust regimen if needed Gout: -On allopurinol DVT Prophylaxis: -On heparin Subjective Date of service: 01/26/18 Interval history: Patient eating lunch, states continues to have left elbow pain, but feels better overall. at bedside Objective - Vital Signs Vital signs: Vital Signs - 12hr 01/26/18 01/26/18 01/26/18 08:12 11:08 11:09 Temperature 99.2 F Pulse Rate 68 Respiratory 18 Rate Blood Pressure 150/75 150/75 150/75 O2 Sat by Pulse 98 Oximetry - General Appearance General appearance: well-nourished (no acute distress) EENT: ATNC Neck: no JVD Respiratory: Present: Clear to Ascultation Cardiology: regular, S1S2 Gastrointestinal: normoactive bowel sounds, no tenderness Integumentary: other (left elbow swelling) Neurologic: alert and oriented x3 Musculoskeletal: other (no edema to both lower extremities) Psychiatric: mood/affect appropriate, cooperative - Lab 01/26/18 05:43 01/26/18 05:43 Most recent lab results Calcium 8.3 mg/dL (8.4-10.2) L 01/26/18 05:43 Phosphorus 3.20 mg/dL (2.5-4.5) 01/26/18 05:43 Magnesium 1.80 mg/dL (1.7-2.3) 01/26/18 05:43
[2018-01-26] MEDS: VANCOMYCIN 1,500 MG in NACL 0.9% 500 ML 500 ML IV SCH (12:47)
[2018-01-26] MEDS: MORPHINE IV PRN (15:50)
[2018-01-26] MEDS: TYLENOL PO PRN (17:18)
[2018-01-26] MEDS: VANCOMYCIN 1,250 MG in NACL 0.9% 250ML 250 ML IV SCH (21:38)
[2018-01-26] MEDS: LANTUS SUB-Q SCH (21:43)
[2018-01-27] MEDS: UNASYN/NS 3 GM/100 ML 3 GM/100 ML BAG IV SCH ×4 (00:16→17:56)
[2018-01-27 06:07] LABS: Basophils % (Auto) 0.4 % (0.0-1.8); Eosinophils # (Auto) 0.2 K/mm3 (0.0-0.4); Eosinophils % (Auto) 2.6 % (0.0-4.3); Hemoglobin 9.2 gm/dl (11.8-15.2); Lymphocytes # (Auto) 0.8 K/mm3 (1.2-5.4); Lymphocytes % (Auto) 10.4 % (13.4-35.0); Mean Corpuscular HGB Conc 32 % (32-34); Mean Corpuscular Volume 76 fl (84-94); Monocytes # (Auto) 0.7 K/mm3 (0.0-0.8); Monocytes % (Auto) 8.9 % (0.0-7.3); Platelet Count 347 K/mm3 (140-440); Red Blood Count 3.81 M/mm3 (3.65-5.03); Red Cell Distribution Width 13.4 % (13.2-15.2)
[2018-01-27 06:29] LABS: BUN/Creatinine Ratio 15; Blood Urea Nitrogen 16 mg/dL (9-20); Calcium 8.3 mg/dL (8.4-10.2); Hemolysis Index 0
[2018-01-27 06:52] LABS: Mean Corpuscular Hemoglobin 24 pg (28-32)
[2018-01-27] MEDS: MORPHINE IV PRN ×2 (06:53→10:44)
[2018-01-27] MEDS: HumaLOG SUB-Q SCH ×4 (08:43→22:13)
[2018-01-27] MEDS: ZYLOPRIM PO SCH (10:22)
[2018-01-27] MEDS: AMARYL PO SCH (10:23)
[2018-01-27] MEDS: HALFPRIN EC PO SCH (10:23)
[2018-01-27] MEDS: SODIUM CHLORIDE FLUSH SYRINGE 10 ML IV SCH ×2 (10:24→22:14)
[2018-01-27] MEDS: COREG PO SCH ×2 (10:24→21:45)
[2018-01-27] MEDS: COZAAR PO SCH (10:25)
--- NOTE | 2018-01-27 10:28 | Progress Note ---
Assessment and Plan Assessment and plan: Sepsis patient meets criteria for sepsis Started on Unasyn and Vancomycin PAWAN (acute kidney injury) Sec to Indocin, dehydration/vasomotor nephropathy and sepsis/ATN Continued IV fluids for now Stop Indocin Improving. Check renal ultrasound Cellulitis of forearm, left Orthopedics consultation pending. MRI of the left elbow to further evaluate potential septic arthritis. Hyperosmolar non-ketotic state in patient with type 2 diabetes mellitus Managed with High doses of sliding scale. Continue long-acting insulin Gout Allopurinol decreased to 100 mg for further prevention of Gout attacks HTN (hypertension) Cont Antihypertensives HCTZ part of Losartan/Hctz was discontinued b/o PAWAN Added coreg DVT prophylaxis on Heparin History Interval history: Patient complains of left elbow pain. Hospitalist Physical - Constitutional Vitals: Temp Pulse Resp BP Pulse Ox 100.2 F H 114 H 16 119/76 99 01/27/18 07:38 01/27/18 07:38 01/27/18 07:38 01/27/18 10:25 01/27/18 07:38 General appearance: Present: no acute distress, well-nourished - EENT Eyes: Present: PERRL, EOM intact ENT: hearing intact, clear oral mucosa, dentition normal - Neck Neck: Present: supple, normal ROM - Respiratory Respiratory effort: normal Respiratory: bilateral: CTA - Cardiovascular Rhythm: regular Heart Sounds: Present: S1 & S2. Absent: gallop, rub - Extremities Extremities: no ischemia, No edema, Full ROM - Abdominal General gastrointestinal: soft, non-tender, non-distended, normal bowel sounds - Integumentary Integumentary: Present: clear, warm, dry - Neurologic Neurologic: CNII-XII intact, moves all extremities Results - Labs CBC & Chem 7: 01/27/18 05:10 01/27/18 05:10 Labs: Laboratory Last Values WBC 8.1 K/mm3 (4.5-11.0) 01/27/18 05:10 RBC 3.81 M/mm3 (3.65-5.03) 01/27/18 05:10 Hgb 9.2 gm/dl (11.8-15.2) L 01/27/18 05:10 Hct 29.0 % (35.5-45.6) L 01/27/18 05:10 MCV 76 fl (84-94) L 01/27/18 05:10 MCH 24 pg (28-32) L 01/27/18 05:10 MCHC 32 % (32-34) 01/27/18 05:10 RDW 13.4 % (13.2-15.2) 01/27/18 05:10 Plt Count 347 K/mm3 (140-440) 01/27/18 05:10 Lymph % (Auto) 10.4 % (13.4-35.0) L 01/27/18 05:10 Coleman % (Auto) 8.9 % (0.0-7.3) H 01/27/18 05:10 Eos % (Auto) 2.6 % (0.0-4.3) 01/27/18 05:10 Baso % (Auto) 0.4 % (0.0-1.8) 01/27/18 05:10 Lymph # 0.8 K/mm3 (1.2-5.4) L 01/27/18 05:10 Coleman # 0.7 K/mm3 (0.0-0.8) 01/27/18 05:10 Eos # 0.2 K/mm3 (0.0-0.4) 01/27/18 05:10 Baso # 0.0 K/mm3 (0.0-0.1) 01/27/18 05:10 Seg Neutrophils % 77.7 % (40.0-70.0) H 01/27/18 05:10 Seg Neutrophils # 6.3 K/mm3 (1.8-7.7) 01/27/18 05:10 ESR 27 mm/Hr (0-20) 01/24/18 10:06 PT 13.5 Sec. (12.2-14.9) 01/24/18 10:06 INR 0.98 (0.87-1.13) 01/24/18 10:06 APTT 28.1 Sec. (24.2-36.6) 01/24/18 10:06 VBG pH 7.363 (7.320-7.420) 01/24/18 10:06 Sodium 133 mmol/L (137-145) L 01/27/18 05:10 Potassium 3.8 mmol/L (3.6-5.0) 01/27/18 05:10 Chloride 96.4 mmol/L (98-107) L 01/27/18 05:10 Carbon Dioxide 23 mmol/L (22-30) 01/27/18 05:10 Anion Gap 17 mmol/L 01/27/18 05:10 BUN 16 mg/dL (9-20) 01/27/18 05:10 Creatinine 1.1 mg/dL (0.8-1.5) 01/27/18 05:10 Estimated GFR > 60 ml/min 01/27/18 05:10 BUN/Creatinine Ratio 15 % 01/27/18 05:10 Glucose 181 mg/dL (75-100) H 01/27/18 05:10 POC Glucose 197 (70-105) H 01/27/18 05:37 Hemoglobin A1c 11.2 % (4-6) H 01/24/18 15:34 Ketones Quantitative Negative (Negative) 01/24/18 15:03 Lactic Acid 2.00 mmol/L (0.7-2.0) 01/24/18 20:23 Calcium 8.3 mg/dL (8.4-10.2) L 01/27/18 05:10 Phosphorus 3.20 mg/dL (2.5-4.5) 01/26/18 05:43 Magnesium 1.80 mg/dL (1.7-2.3) 01/26/18 05:43 Total Bilirubin 0.40 mg/dL (0.1-1.2) 01/24/18 12:27 Direct Bilirubin < 0.2 mg/dL (0-0.2) 01/24/18 12:27 AST 9 units/L (5-40) 01/24/18 12:27 ALT 9 units/L (7-56) 01/24/18 12:27 Alkaline Phosphatase 93 units/L (35-129) 01/24/18 12:27 Total Creatine Kinase 43 units/L (55-170) L 01/24/18 10:06 CK-MB (CK-2) 1.8 ng/mL (0.0-4.0) 01/24/18 10:06 CK-MB (CK-2) Rel Index 4.1 (0-4) H 01/24/18 10:06 C-Reactive Protein 13.80 mg/dL (0.00-1.30) H 01/24/18 12:27 NT-Pro-B Natriuret Pep 207.6 pg/mL (0-900) 01/24/18 10:06 Total Protein 7.3 g/dL (6.3-8.2) 01/24/18 12:27 Albumin 2.4 g/dL (3.9-5) L 01/24/18 12:27 Albumin/Globulin Ratio 0.5 % 01/24/18 12:27 PTH Intact 59.15 pg/mL (15-65) 01/26/18 05:43 Vancomycin Trough 7.3 ug/mL (5.0-20.0) 01/26/18 12:32
[2018-01-27] MEDS: HEPARIN SUB-Q SCH ×2 (10:29→21:46)
[2018-01-27] MEDS: VANCOMYCIN 1,250 MG in NACL 0.9% 250ML 250 ML IV SCH ×2 (10:50→21:45)
--- NOTE | 2018-01-27 12:20 | Progress Note ---
Assessment and Plan Left forearm cellulitis: Sepsis: -On vancomcyin and unasyn -Consulted Dr Ma Hyperosmolar non-ketotic state with underlying Diabetes Mellitus Type 2: -On SSI, lantus, and glimepiride -As per primary team Hyponatremia in setting of hyperglycemia and poor oral intake: -stable - d/c IVF - cont fluid restriction Acute Kidney Injury possibly secondary to prerenal/ questionable AIN from NSAIDs , r/o obstruction: -stable kidney function -Renally dose meds -Indomethacin stopped -Avoid nephrotoxic agents Hypertension: -On coreg and losartan, adjust regimen if needed Gout: -On allopurinol DVT Prophylaxis: -On heparin Subjective Date of service: 01/27/18 Principal diagnosis: acute renal failure Interval history: denies acute issues. denies SOB and chest pain Objective - Vital Signs Vital signs: Vital Signs - 12hr 01/27/18 01/27/18 01/27/18 07:28 07:38 10:24 Temperature 100.0 F H 100.2 F H Pulse Rate 75 114 H Respiratory 15 16 Rate Blood Pressure 151/74 119/76 Blood Pressure 119/76 [Left] O2 Sat by Pulse 98 99 Oximetry 01/27/18 01/27/18 10:25 11:49 Temperature 99.9 F H Pulse Rate 74 Respiratory 15 Rate Blood Pressure 119/76 175/89 Blood Pressure [Left] O2 Sat by Pulse 98 Oximetry - General Appearance General appearance: well-developed, well-nourished EENT: ATNC, PERRL, mucous membranes moist Neck: no JVD Respiratory: Present: Clear to Ascultation. Absent: Rales, Ronchi Cardiology: regular, S1S2 Gastrointestinal: normoactive bowel sounds, no tenderness, no distended, no guarding Integumentary: no rash, warm and dry Neurologic: no focal deficit, no asterixis, alert and oriented x3 Musculoskeletal: other (no edema in BLE) Psychiatric: mood/affect appropriate, cooperative - Lab 01/27/18 05:10 01/27/18 05:10 Most recent lab results Calcium 8.3 mg/dL (8.4-10.2) L 01/27/18 05:10 Phosphorus 3.20 mg/dL (2.5-4.5) 01/26/18 05:43 Magnesium 1.80 mg/dL (1.7-2.3) 01/26/18 05:43
--- NOTE | 2018-01-27 15:34 | Magnetic Resonance Report ---
MRI UPPER EXTREMITY JOINT LEFT WITHOUT CONTRAST HISTORY: Left elbow swelling, septic arthritis. TECHNIQUE: Multisequence, multiplanar MRI without IV gadolinium. COMPARISON: Left elbow films dated 01/24/18. FINDINGS: There is moderate to severe diffuse subcutaneous edema which is most pronounced posteriorly. There is an irregular fluid collection in the posterior soft tissues near the insertion site of the triceps tendon on the olecranon measuring 2.4 x 1.3 x 1.7 cm. This either represents a small subcutaneous abscess or olecranon bursitis. The triceps tendon remains attached but appears thickened with increased intrinsic signal. Tendinitis or partial tear should be considered. The remaining musculotendinous structures are unremarkable on this limited exam. There is a moderate to large joint effusion at the elbow. The bone marrow signal is within normal limits. No bone marrow edema or periostitis is identified to suggest septic joint or osteomyelitis. No evidence for fracture. Mild osteoarthritic changes are noted. IMPRESSION: Cellulitis. Small posterior soft tissue abscess versus olecranon bursitis, see above. Moderate to large joint effusion but no convincing findings of septic arthritis or osteomyelitis. This could be reactive in nature. Abnormal triceps tendon.
[2018-01-27] MEDS: LANTUS SUB-Q SCH (21:47)
[2018-01-28] MEDS: UNASYN/NS 3 GM/100 ML 3 GM/100 ML BAG IV SCH ×2 (00:48→06:30)
[2018-01-28 06:11] LABS: Basophils % (Auto) 0.6 % (0.0-1.8); Eosinophils # (Auto) 0.2 K/mm3 (0.0-0.4); Hematocrit 30.1 % (35.5-45.6); Lymphocytes # (Auto) 1.2 K/mm3 (1.2-5.4); Lymphocytes % (Auto) 14.5 % (13.4-35.0); Mean Corpuscular HGB Conc 33 % (32-34); Mean Corpuscular Volume 75 fl (84-94); Monocytes # (Auto) 0.7 K/mm3 (0.0-0.8); Monocytes % (Auto) 8.7 % (0.0-7.3); Platelet Count 333 K/mm3 (140-440); Red Blood Count 4.02 M/mm3 (3.65-5.03); Red Cell Distribution Width 13.2 % (13.2-15.2)
[2018-01-28 06:14] LABS: Mean Corpuscular Hemoglobin 25 pg (28-32)
[2018-01-28 06:28] LABS: BUN/Creatinine Ratio 10; Blood Urea Nitrogen 10 mg/dL (9-20); Calcium 8.3 mg/dL (8.4-10.2); Hemolysis Index 3
--- NOTE | 2018-01-28 08:45 | Discharge Summary ---
Providers - Providers Date of Admission: 01/24/18 14:45 Date of discharge: 01/28/18 Attending physician: AMINTA GONZALEZ 01/24/18 12:54 Consult to Physician [CONS] Urgent Comment: Consulting Provider: ANTHONY MARTINO Physician Instructions: Reason For Exam: cellulitis, elbow effusion 01/24/18 15:13 Consult to Physician [CONS] Routine Comment: Consulting Provider: SAE PATTERSON Physician Instructions: Reason For Exam: PAWAN Primary care physician: [employer] Hospitalization Reason for admission: elbow pain and hyperglycemia Condition: Stable Hospital course: This is a 52 y/o male with PMH of DM type 2 non-insulin dependent, HTN, and gout who presented to [facility] on 01/24 with c/o elevated blood glucose level, left arm redness/elbow swelling, and decreased appetite/oral intake. Patient was apparently here on 01/11/18 after hitting his elbow, diagnosed with elbow effusion , placed on indomethacin and prednisone. Patient recently started on allopurinol for gout as outpatient. On admission, SCr level was 2.4 and blood glucose greater than 600. The patient was initially admitted with diagnosis of sepsis secondary to left forearm cellulitis, acute kidney injury secondary to dehydration/vasomotor nephropathy/sepsis and hyperosmolar nonketotic state. The patient was treated with IV fluid hydration and managed with high doses of insulin for the hyperglycemia. The IV fluids also treated the acute kidney injury and the creatinine returned to normal range prior to discharge. The patient underwent MRI evaluation of the left elbow which revealed moderate to large joint effusion at the elbow and findings that may represent small subcutaneous abscess or olecranon bursitis. Patient was evaluated by by orthopedics who felt that this was all related to gout. Patient was felt to have received maximal hospital benefit and will follow-up with orthopedics as an outpatient. Dedicated discharge time 35 minutes. Disposition: - TO HOME OR SELFCARE Time spent for discharge: 35 - Discharge Diagnoses (1) PAWAN (acute kidney injury) Status: Acute (2) Acute renal injury Status: Acute (3) Cellulitis of forearm, left Status: Acute (4) Gout Status: Acute Qualifiers: Gout site: elbow Laterality: left (5) Hyperglycemia Status: Acute (6) Hyperosmolar non-ketotic state in patient with type 2 diabetes mellitus Status: Acute (7) Sepsis Status: Acute (8) HTN (hypertension) Status: Chronic Qualifiers: Hypertension type: essential hypertension Qualified Code(s): I10 - Essential (primary) hypertension Core Measure Documentation - Palliative Care Palliative Care/ Comfort Measures: Not Applicable - Core Measures Any of the following diagnoses?: none Exam - Constitutional Vitals: Temp Pulse Resp BP Pulse Ox 99.1 F 77 18 147/81 99 01/28/18 07:49 01/28/18 07:49 01/28/18 07:49 01/28/18 07:49 01/28/18 07:49 General appearance: Present: no acute distress, well-nourished - EENT Eyes: Present: PERRL ENT: hearing intact, clear oral mucosa - Neck Neck: Present: supple, normal ROM - Respiratory Respiratory effort: normal Respiratory: bilateral: CTA - Cardiovascular Heart Sounds: Present: S1 & S2. Absent: rub, click - Extremities Extremities: pulses symmetrical, No edema Peripheral Pulses: within normal limits - Abdominal General gastrointestinal: Present: soft, non-tender, non-distended, normal bowel sounds Male genitourinary: Present: normal - Integumentary Integumentary: Present: clear, warm, dry - Musculoskeletal Musculoskeletal: gait normal, strength equal bilaterally - Psychiatric Psychiatric: appropriate mood/affect, intact judgment & insight - Neurologic Neurologic: CNII-XII intact, moves all extremities Plan Activity: no restrictions Weight Bearing Status: Weight Bear as Tolerated Diet: diabetic Follow up with: PRIMARY CARE, [Primary Care Provider] - 3-5 Days ANTHONY MARTINO MD [Staff Physician] - 7 Days YUSUF MOE MD [Staff Physician] - 7 Days Prescriptions: Allopurinol [Zyloprim] 100 mg PO QDAY #30 tablet Aspirin [Aspirin EC] 81 mg PO DAILY #30 tablet. Carvedilol [Coreg] 6.25 mg PO BID #60 tablet Glimepiride [Amaryl] 4 mg PO DAILY #30 tablet Losartan [Cozaar] 100 mg PO QDAY #30 tablet Metformin HCl [Glucophage] 1,000 mg PO BID #60 tablet Multivitamin [Multiple Vitamins] 1 each PO DAILY #30 tablet
[2018-01-28] MEDS: HumaLOG SUB-Q SCH ×2 (09:09→12:09)
--- NOTE | 2018-01-28 09:36 | Consultation ---
History of Present Illness - [facility] Consult date: 01/27/18 Consult reason: joint pain History of present illness: 52 y/o male with c/o left elbow pain and swelling x wks, no hx of injury...Seen in my office recently where exam consistent with gouty arthritis left elbow serum uric acid 9.0 advised to take uric acid lowering medications and f/u ...admitted for elevated blood glucose.... Medications and Allergies Allergies Allergy/AdvReac Type Severity Reaction Status Date / Time seafood Allergy Hives Uncoded 01/11/18 07:13 Home Medications Medication Instructions Recorded Confirmed Last Taken Type Indomethacin 50 mg PO Q8H PRN #20 capsule 01/11/18 01/24/18 01/24/18 Rx Allopurinol [Zyloprim] 100 mg PO QDAY 01/24/18 01/24/18 01/24/18 History Aspirin [Aspirin EC] 81 mg PO DAILY 01/24/18 01/24/18 01/24/18 History Losartan/Hydrochlorothiazide 1 each PO DAILY 01/24/18 01/24/18 01/24/18 History [Losartan-Hctz 100-25 mg Tab] Metformin HCl [Glucophage] 1,000 mg PO BID 01/24/18 01/24/18 01/24/18 History Multivitamin [Multiple Vitamins] 1 each PO DAILY 01/24/18 01/24/18 01/24/18 History Active Meds: Active Medications Acetaminophen (Tylenol) 650 mg PO Q4H PRN PRN Reason: Pain MILD(1-3)/Fever >100.5/BRANDON Last Admin: 01/26/18 17:18 Dose: 650 mg Allopurinol (Zyloprim) 100 mg PO QDAY [facility] Last Admin: 01/27/18 10:22 Dose: 100 mg Aspirin (Halfprin Ec) 81 mg PO DAILY [facility] Last Admin: 01/27/18 10:23 Dose: 81 mg Carvedilol (Coreg) 6.25 mg PO BID [facility] Last Admin: 01/27/18 21:45 Dose: 6.25 mg Glimepiride (Amaryl) 4 mg PO DAILY [facility] Last Admin: 01/27/18 10:23 Dose: 4 mg Heparin Sodium (Porcine) (Heparin) 5,000 unit SUB-Q Q12HR [facility] Last Admin: 01/27/18 21:46 Dose: 5,000 unit Ampicillin Sodium/Sulbactam Sodium (Unasyn/Ns 3 Gm/100 Ml) 3 gm in 100 mls @ 100 mls/hr IV Q6HR [facility]; Protocol Last Admin: 01/28/18 06:30 Dose: 100 mls/hr Vancomycin HCl 1,250 mg/ (Sodium Chloride) 262.5 mls @ 166.667 mls/hr IV Q12HR [facility] Last Admin: 01/27/18 21:45 Dose: 166.667 mls/hr Insulin Glargine (Lantus) 10 units SUB-Q QHS [facility] Last Admin: 01/27/18 21:47 Dose: 10 units Insulin Human Lispro (Humalog) 0 unit SUB-Q ACHS [facility]; Protocol Last Admin: 01/28/18 09:09 Dose: Not Given Losartan Potassium (Cozaar) 100 mg PO QDAY [facility] Last Admin: 01/27/18 10:25 Dose: Not Given Morphine Sulfate (Morphine) 2 mg IV Q4H PRN PRN Reason: Pain , MODERATE (4-6) Last Admin: 01/27/18 10:44 Dose: 2 mg Ondansetron HCl (Zofran) 4 mg IV Q8H PRN PRN Reason: Nausea And Vomiting Sodium Chloride (Sodium Chloride Flush Syringe 10 Ml) 10 ml IV BID [facility] Last Admin: 01/27/18 22:14 Dose: 10 ml Sodium Chloride (Sodium Chloride Flush Syringe 10 Ml) 10 ml IV PRN PRN PRN Reason: LINE FLUSH Vancomycin HCl (Vancomycin Pharmacy To Dose) 1 each IV PKCONSULT [facility]; Protocol Zolpidem Tartrate (Ambien) 5 mg PO QHS PRN PRN Reason: Insomnia Physical Examination - Physical exam Narrative exam: left Upper extremity - elbow - moderate swelling, no erythema, active ROM 100- 45 degrees, full supination/pronation, good capillary refill... Assessment and Plan gouty arthritis left elbow continue oral uric acid lowering medications and repeat UA in 1 month
[2018-01-28] MEDS: AMARYL PO SCH (10:26)
[2018-01-28] MEDS: HALFPRIN EC PO SCH (10:26)
[2018-01-28] MEDS: COZAAR PO SCH (10:26)
[2018-01-28] MEDS: ZYLOPRIM PO SCH (10:26)
[2018-01-28] MEDS: COREG PO SCH (10:26)
[2018-01-28] MEDS: VANCOMYCIN 1,250 MG in NACL 0.9% 250ML 250 ML IV SCH (10:27)
[2018-01-28] MEDS: HEPARIN SUB-Q SCH (10:28)
[2018-01-28 12:06] VITALS: BP 134/68
[2018-01-28] MEDS: SODIUM CHLORIDE FLUSH SYRINGE 10 ML IV SCH (12:10)
== END 2018-01-28 12:30 | disposition home or self-care (01) | DRG 871 ==
LOC: ED 09:41 → 3A 14:45
PROVIDERS: ADMIT Internal Medicine; ATTEND Hospitalist
DX: A41.9 Sepsis, unspecified organism (principal); N17.0 Acute kidney failure with tubular necrosis; E11.00 Type 2 diabetes mellitus with hyperosmolarity without nonketotic hyperglycemic-hyperosmolar coma (NKHHC); L03.114 Cellulitis of left upper limb; E87.1 Hypo-osmolality and hyponatremia; I10 Essential (primary) hypertension; M10.9 Gout, unspecified; E11.65 Type 2 diabetes mellitus with hyperglycemia; M25.422 Effusion, left elbow; E86.0 Dehydration; M10.022 Idiopathic gout, left elbow; Z91.013 Allergy to seafood
CPT/HCPCS: 36415; 71045; 76770; 80048; 80074; 80202; 82010; 82140; 82550; 82553; 82805; 82962; 83036; 83735; 83880; 83970; 84100; 85025; 85027; 85610; 85652; 85730; 86140; 87040; 87086; 96361; 96374; 96376; J0295; J1644; J1815; J2270; J3370; J7030; J7040; J7050

== ENCOUNTER 2021-05-26 20:52 | Inpatient (IN) | payer BC, OTHER ==
--- NOTE | 2021-05-26 22:50 | XRay Report ---
CHEST 2 VIEWS INDICATION / CLINICAL INFORMATION: [place]. COMPARISON: Chest radiograph report dated 01/24/2018. Images are not available for direct comparison. FINDINGS: SUPPORT DEVICES: None. HEART / MEDIASTINUM: Changes of prior median sternotomy, CABG and atrial appendage clip placement are noted. There is prominence of the cardiac silhouette. LUNGS / PLEURA: There is mild venous congestion. There is mild perihilar edema. No pneumothorax. ADDITIONAL FINDINGS: No significant additional findings. IMPRESSION: 1. There is mild perihilar edema. There is mild venous congestion. There is mild prominence the cardi ac silhouette. Signer Name: Terrell Johnson MD Signed: 05/26/2021 10:46 PM Workstation Name: [id number]
[2021-05-27 00:03] LABS: Hemoglobin 9.8 gm/dl (11.8-15.2); Mean Corpuscular HGB Conc 32 % (32-34); Mean Corpuscular Volume 78 fl (84-94); Platelet Count 176 K/mm3 (140-440); Red Blood Count 3.96 M/mm3 (3.65-5.03); Red Cell Distribution Width 17.7 % (13.2-15.2)
[2021-05-27 00:29] LABS: Calcium 8.8 mg/dL (8.4-10.2)
[2021-05-27 02:30] LABS: Anisocytosis 1+; Total Cells Counted 100
[2021-05-27 02:31] LABS: Platelet Estimate Consistent w Auto
--- NOTE | 2021-05-27 02:51 | Emergency Department Report ---
ED Shortness of Breath HPI - General Chief Complaint: Dyspnea/Respdistress Stated Complaint: SOB, [facility] 2019 Time Seen by Provider: 05/27/21 02:47 Source: patient Mode of arrival: Ambulatory Limitations: No Limitations - History of Present Illness Initial Comments: Patient is a 56-year-old male who presents emergency room with complaints of sh ortness of breath, dyspnea on exertion, orthopnea. Patient states his symptoms started weaker. But states symptoms are worsening. Patient states that his shortness of breath and difficulty breathing are better with rest and upright position. Patient states his symptoms are worse with lying flat, exertion. Patient denies chest pain. Patient denies nausea vomiting. Patient denies diaphoresis. Patient denies recent travel. Patient denies recent international travel. Patient denies exposure to the novel coronavirus. Patient denies sick contacts. Patient denies fever and chills. Patient denies cough. Patient denies diarrhea. Patient denies coming in contact with anybody with symptoms of the novel coronavirus. MD Complaint: shortness of breath -: Gradual, week(s) Severity: severe Consistency: constant Improves With: rest, upright position Worsens With: lying flat, exertion Known History Of: congestive heart failure Treatments Prior to Arrival: none - Related Data Home Oxygen Therapy: No Previous Rx's Medication Instructions Recorded Last Taken Type Amoxicillin/Potassium Clav 1 each PO BID #20 tablet 01/28/18 Unknown Rx [Augmentin 875-125 Tablet] RX: Aspirin [Aspirin EC] 81 mg PO DAILY #30 tablet. 01/28/18 Unknown Rx RX: Glimepiride [Amaryl] 4 mg PO DAILY #30 tablet 01/28/18 Unknown Rx RX: Losartan [Cozaar] 100 mg PO QDAY #30 tablet 01/28/18 Unknown Rx RX: Metformin HCl [Glucophage] 1,000 mg PO BID #60 tablet 01/28/18 Unknown Rx RX: Multivitamin [Multiple 1 each PO DAILY #30 tablet 01/28/18 Unknown Rx Vitamins] RX: allopurinoL [Zyloprim] 100 mg PO QDAY #30 tablet 01/28/18 Unknown Rx RX: carvediloL [Coreg] 6.25 mg PO BID #60 tablet 01/28/18 Unknown Rx Allergies Allergy/AdvReac Type Severity Reaction Status Date / Time seafood Allergy Hives Uncoded 01/11/18 07:13 ED Review of Systems ROS: Stated complaint: SOB, [facility] 2020 Other details as noted in HPI Constitutional: denies: chills, fever Eyes: denies: eye pain, eye discharge, vision change ENT: denies: ear pain, throat pain Respiratory: shortness of breath, SOB with exertion, SOB at rest. denies: cough, wheezing Cardiovascular: dyspnea on exertion, orthopnea, edema. denies: chest pain, palpitations Endocrine: no symptoms reported Gastrointestinal: denies: abdominal pain, nausea, diarrhea Genitourinary: denies: urgency, dysuria Musculoskeletal: denies: back pain, joint swelling, arthralgia Skin: denies: rash, lesions Neurological: denies: headache, weakness, paresthesias Psychiatric: denies: anxiety, depression Hematological/Lymphatic: denies: easy bleeding, easy bruising ED Past Medical Hx - Past Medical History Previous Medical History?: Yes Hx Hypertension: Yes Hx Congestive Heart Failure: No Hx Diabetes: Yes Additional medical history: GOUT which is a new diagnosis - Surgical History Past Surgical History?: No - Family History Family history: no significant - Social History Smoking Status: Never Smoker Substance Use Type: None - Medications Home Medications: Home Medications Medication Instructions Recorded Confirmed Last Taken Type Amoxicillin/Potassium Clav 1 each PO BID #20 tablet 01/28/18 Unknown Rx [Augmentin 875-125 Tablet] RX: Aspirin [Aspirin EC] 81 mg PO DAILY #30 tablet.dr 01/28/18 Unknown Rx RX: Glimepiride [Amaryl] 4 mg PO DAILY #30 tablet 01/28/18 Unknown Rx RX: Losartan [Cozaar] 100 mg PO QDAY #30 tablet 01/28/18 Unknown Rx RX: Metformin HCl [Glucophage] 1,000 mg PO BID #60 tablet 01/28/18 Unknown Rx RX: Multivitamin [Multiple 1 each PO DAILY #30 tablet 01/28/18 Unknown Rx Vitamins] RX: allopurinoL [Zyloprim] 100 mg PO QDAY #30 tablet 01/28/18 Unknown Rx RX: carvediloL [Coreg] 6.25 mg PO BID #60 tablet 01/28/18 Unknown Rx ED Physical Exam - General Limitations: No Limitations General appearance: alert, in no apparent distress - Head Head exam: Present: atraumatic, normocephalic - Eye Eye exam: Present: normal appearance - ENT ENT exam: Present: mucous membranes moist - Neck Neck exam: Present: normal inspection - Respiratory Respiratory exam: Present: rales. Absent: respiratory distress - Cardiovascular Cardiovascular Exam: Present: regular rate, normal rhythm. Absent: systolic murmur, diastolic murmur, rubs, gallop - GI/Abdominal GI/Abdominal exam: Present: soft, normal bowel sounds - Rectal Rectal exam: Present: deferred - Extremities Exam Extremities exam: Present: normal inspection - Back Exam Back exam: Present: normal inspection - Neurological Exam Neurological exam: Present: alert, oriented X3 - Psychiatric Psychiatric exam: Present: normal affect, normal mood - Skin Skin exam: Present: warm, dry, intact, normal color. Absent: rash ED Course Vital Signs 05/26/21 22:02 Temperature 98.6 F Pulse Rate 51 L Respiratory 16 Rate Blood Pressure 119/54 O2 Sat by Pulse 97 Oximetry - Reevaluation(s) Reevaluation #1: Patient will be given IV Lasix. Patient has pulmonary edema. I discussed all results with patient. I discussed plan of care with patient. Patient agrees with plan of care and admission. Patient to be admitted to the hospitalist service. 05/27/21 04:41 - Consultations Consultation #1: Hospitalist consulted for admission. Hospitalist to admit patient. 05/27/21 04:41 ED Medical Decision Making - Lab Data Result diagrams: 05/26/21 23:19 05/26/21 23:19 - EKG Data -: EKG Interpreted by Me EKG shows normal: sinus rhythm, axis, intervals, QRS complexes, ST-T waves Rate: normal - EKG Data Interpretation: LVH - Radiology Data Radiology results: report reviewed, image reviewed interpreted by me: Chest x-ray: No pneumonia, no pneumothorax, no foreign body, no osseous findings, CHF changes and pulmonary edema. CHEST 2 VIEWS INDICATION / CLINICAL INFORMATION: [place]. COMPARISON: Chest radiograph report dated 01/24/2018. Images are not available for direct comparison. FINDINGS: SUPPORT DEVICES: None. HEART / MEDIASTINUM: Changes of prior median sternotomy, CABG and atrial appendage clip placement are noted. There is prominence of the cardiac silhouette. LUNGS / PLEURA: There is mild venous congestion. There is mild perihilar edema. No pneumothorax. ADDITIONAL FINDINGS: No significant additional findings. IMPRESSION: 1. There is mild perihilar edema. There is mild venous congestion. There is mild prominence the cardiac silhouette. - Medical Decision Making Patient is a 56-year-old male who presents emergency room with complaints of shortness of breath, orthopnea, dyspnea on exertion. Patient denies chest pain. Patient had labs done which were essentially unremarkable except for an elevated troponin and acute renal failure. Patient does have a history of kidney disease. Patient also had a chest x-ray which was positive for CHF changes and pulmonary edema. Patient EKG showed no acute findings or ST changes. Patient given IV Lasix. Patient admitted to the hospital service for further evaluation treatment. Patient does not have a history of CHF. Critical care time documented due to the multiple reassessments, prolonged time at the bedside, interpretation of diagnostics and labs. - Differential Diagnosis CHF, pulmonary edema, volume overload, sob, bautista, Critical Care Time: Yes Critical care time in (mins) excluding proc time.: 35 Critical care attestation.: If time is entered above; I have spent that time in minutes in the direct care of this critically ill patient, excluding procedure time. Critical Care Time: 35 minutes ED Disposition Clinical Impression: New onset of congestive heart failure CHF (congestive heart failure) Qualifiers: Heart failure type: unspecified Heart failure chronicity: acute Qualified Code(s): I50.9 - Heart failure, unspecified Acute renal failure Qualifiers: Acute renal failure type: unspecified Qualified Code(s): N17.9 - Acute kidney failure, unspecified Pulmonary edema Qualifiers: Chronicity: acute Qualified Code(s): J81.0 - Acute pulmonary edema Disposition: OP ADMIT IP TO THIS HOSP Is pt being admited?: Yes Does the pt Need Aspirin: No Condition: Critical Time of Disposition: 04:57
[2021-05-27] MEDS ORDERED: ASPIRIN 325 MG TAB PO ONE (06:17)
[2021-05-27] MEDS: FUROSEMIDE 40 MG/4 ML INJ IV ONE ×2 (06:44→07:27)
[2021-05-27] MEDS ORDERED: ONDANSETRON 4 MG/2 ML INJ IV PRN (09:56)
[2021-05-27] MEDS ORDERED: ALUM-MAG HYDROXIDE-SIMETHICONE 200-200-20MG/5ML ORAL LIQD 30 ML PO PRN (09:56)
[2021-05-27] MEDS ORDERED: ACETAMINOPHEN 325 MG TAB PO PRN (09:56)
[2021-05-27] MEDS ORDERED: oxyCODONE /ACETAMINOPHEN 5-325MG TAB PO PRN (09:56)
[2021-05-27] MEDS ORDERED: DEXTROSE 50% IN WATER (25GM) 50 ML SYRINGE IV PRN (09:56)
--- NOTE | 2021-05-27 10:11 | History and Physical Report ---
History of Present Illness Date of examination: 05/27/21 Date of admission: 05/27/21 04:57 Chief complaint: Shortness of breath History of present illness: Meek Ames is a 56-year-old male with past medical history of hypertension, CAD status post CABG x4, gout, type 2 diabetes presenting for acute complaint of shortness of breath. Patient states that onset was yesterday. He has been feeling progressively more fatigued and short of breath however over the last few weeks. He states that he has associated orthopnea, PND, lower extremity edema. He also has dyspnea on exertion stating that going up the driveway can be difficult for him. He denied any chest pain, jaw pain, nausea, vomiting, shoulder pain, hematuria, abdominal pain, peripheral nerve pain. Of note patient is a resident of [facility]. He has been in the [facility] area due to the passing of his mother in October. He had a recent CABG procedure with four-vessel bypass in October 2020. 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 He has no remote history of PE, DVT, stroke. He is currently on Pacerone for A. fib prophylaxis p ost CABG, but does not have a prior history of atrial fibrillation. ED Course: Lasix 40 mg x 1, aspirin x1 PMHx: HTN, CAD status post CABG x4 vessels, type 2 diabetes, gout, alcoholism PSHx: CABG x4 vessels in October 2020 FHx: Motherheart disease SHx: Non-smoker, alcohol (6 pack/day), denies rec drugs, from [place], [place] gets primary care and cardiology needs there Medications and Allergies Allergies Allergy/AdvReac Type Severity Reaction Status Date / Time seafood Allergy Hives Uncoded 05/27/21 07:23 Home Medications Medication Instructions Recorded Confirmed Last Taken Type Aspirin [Aspirin EC] 81 mg PO DAILY #30 tablet. 01/28/18 05/27/21 Unknown Rx Metformin HCl [Glucophage] 1,000 mg PO BID #60 tablet 01/28/18 05/27/21 Unknown Rx Multivitamin [Multiple Vitamins] 1 each PO DAILY #30 tablet 01/28/18 05/27/21 Unknown Rx allopurinoL [Zyloprim] 100 mg PO QDAY #30 tablet 01/28/18 05/27/21 Unknown Rx carvediloL [Coreg] 6.25 mg PO BID #60 tablet 01/28/18 05/27/21 Unknown Rx AtorvaSTATin [Lipitor] 40 mg PO QHS 05/27/21 05/27/21 Unknown History Metoprolol [Lopressor] 25 mg PO BID 05/27/21 05/27/21 Unknown History Potassium Chloride [K-Dur] 10 meq PO QDAY 05/27/21 05/27/21 Unknown History Sitagliptin Phosphate [Januvia] 100 mg PO QDAY 05/27/21 05/27/21 Unknown History Tadalafil [Cialis] 10 mg PO QDAY 05/27/21 05/27/21 Unknown History Active Meds: Active Medications Acetaminophen (Acetaminophen 325 Mg Tab) 650 mg PO Q4H PRN PRN Reason: Pain MILD(1-3)/Fever >100.5/BRANDON Al Hydrox/Mg Hydrox/Simethicone (Alum-Mag Hydroxide-Simethicone 898-251-12hd/5ml Oral Liqd 30 Ml) 30 ml PO Q4H PRN PRN Reason: Indigestion Dextrose (Dextrose 50% In Water (25gm) 50 Ml Syringe) 50 ml IV Q30MIN PRN; Protocol PRN Reason: Hypoglycemia Enoxaparin Sodium (Enoxaparin 30 Mg/0.3 Ml Inj) 30 mg SUB-Q QDAY RENÉE Insulin Human Regular (Insulin Regular, Human 100 Units/1 Ml) 0 units SUB-Q ACHS RENÉE; Protocol Ondansetron HCl (Ondansetron 4 Mg/2 Ml Inj) 4 mg IV Q8H PRN PRN Reason: Nausea And Vomiting Oxycodone/Acetaminophen (Oxycodone /Acetaminophen 5-325mg Tab) 1 tab PO Q6H PRN PRN Reason: Pain, Moderate (4-6) Sodium Chloride (Sodium Chloride 0.9% 10 Ml Flush Syringe) 10 ml IV BID RENÉE Sodium Chloride (Sodium Chloride 0.9% 10 Ml Flush Syringe) 10 ml IV PRN PRN PRN Reason: LINE FLUSH Review of Systems All systems: negative (stated in HPI) Exam - Physical Exam Narrative exam: Physical Exam: GENERAL APPEARANCE: Well developed, well nourished, alert and cooperative, and appears to be in no acute distress. HEAD: normocephalic. EYES: PERRL, EOMI. Vision is grossly intact. EARS: No gross deformities NOSE: No nasal discharge. THROAT: Oral cavity and pharynx normal. No inflammation, swelling, exudate, or lesions. Teeth and gingiva in good general condition. NECK: Neck supple, non-tender without lymphadenopathy, masses or thyromegaly. CARDIAC: Midline surgical scar from prior procedure. Normal S1 and S2. No S3, S4. 4 out of 6 systolic ejection murmur radiating to carotids. Rhythm is regular. There is no peripheral edema, cyanosis or pallor. Extremities are warm and well perfused. Capillary refill is less than 2 seconds. No carotid bruits. LUNGS: Clear to auscultation and percussion without rales, rhonchi, wheezing or diminished breath sounds. ABDOMEN: Positive bowel sounds. Soft, nondistended, nontender. No guarding or rebound. No masses. MUSKULOSKELETAL: Adequately aligned spine. ROM intact spine and extremities. No joint erythema or tenderness. Normal muscular development. Normal gait. BACK: Examination of the spine reveals normal gait and posture EXTREMITIES: No significant deformity or joint abnormality. Bilateral 2+ pitting edema ankles to knees. Peripheral pulses intact. No varicosities. NEUROLOGICAL: CN II-XII intact. Strength and sensation symmetric and intact throughout. Reflexes 2+ throughout. PSYCHIATRIC: The mental examination revealed the patient was oriented to person, place, and time. - Constitutional Vitals: Temp Pulse Resp BP Pulse Ox 98.6 F 61 29 H 129/66 96 05/26/21 22:02 05/27/21 07:00 05/27/21 07:00 05/27/21 07:00 05/27/21 06:34 HEART Score - HEART Score Troponin: Troponin T 0.029 ng/mL (0.00-0.029) 05/27/21 04:49 Results - Labs CBC & Chem 7: 05/26/21 23:19 05/26/21 23:19 Labs: Laboratory Last Values WBC 4.2 K/mm3 (4.5-11.0) L 05/26/21 23:19 RBC 3.96 M/mm3 (3.65-5.03) 05/26/21 23:19 Hgb 9.8 gm/dl (11.8-15.2) L 05/26/21 23:19 Hct 31.0 % (35.5-45.6) L 05/26/21 23:19 MCV 78 fl (84-94) L 05/26/21 23:19 MCH 25 pg (28-32) L 05/26/21 23:19 MCHC 32 % (32-34) 05/26/21 23:19 RDW 17.7 % (13.2-15.2) H 05/26/21 23:19 Plt Count 176 K/mm3 (140-440) 05/26/21 23:19 [place] % (Auto) Client Support Representative 05/26/21 23:19 Add Manual Diff Complete 05/26/21 23:19 Total Counted 100 05/26/21 23:19 Seg Neuts % (Manual) 63.0 % (40.0-70.0) 05/26/21 23:19 Band Neutrophils % 1.0 % 05/26/21 23:19 Lymphocytes % (Manual) 21.0 % (13.4-35.0) 05/26/21 23:19 Monocytes % (Manual) 5.0 % (0.0-7.3) 05/26/21 23:19 Eosinophils % (Manual) 9.0 % (0.0-4.3) H 05/26/21 23:19 Basophils % (Manual) 1.0 % (0.0-1.8) 05/26/21 23:19 Nucleated RBC % Not Reportable 05/26/21 23:19 Seg Neutrophils # Man 2.6 K/mm3 (1.8-7.7) 05/26/21 23:19 Band Neutrophils # 0.0 K/mm3 05/26/21 23:19 Lymphocytes # (Manual) 0.9 K/mm3 (1.2-5.4) L 05/26/21 23:19 Abs React Lymphs (Man) 0.0 K/mm3 05/26/21 23:19 Monocytes # (Manual) 0.2 K/mm3 (0.0-0.8) 05/26/21 23:19 Eosinophils # (Manual) 0.4 K/mm3 (0.0-0.4) 05/26/21 23:19 Basophils # (Manual) 0.0 K/mm3 (0.0-0.1) 05/26/21 23:19 Metamyelocytes # 0.0 K/mm3 05/26/21 23:19 Myelocytes # 0.0 K/mm3 05/26/21 23:19 Promyelocytes # 0.0 K/mm3 05/26/21 23:19 Blast Cells # 0.0 K/mm3 05/26/21 23:19 WBC Morphology Not Reportable 05/26/21 23:19 Hypersegmented Neuts Not Reportable 05/26/21 23:19 Hyposegmented Neuts Not Reportable 05/26/21 23:19 Hypogranular Neuts Not Reportable 05/26/21 23:19 Smudge Cells Not Reportable 05/26/21 23:19 Toxic Granulation Not Reportable 05/26/21 23:19 Toxic Vacuolation Not Reportable 05/26/21 23:19 Dohle Bodies Not Reportable 05/26/21 23:19 Pelger-Huet Anomaly Not Reportable 05/26/21 23:19 Marisol Rods Not Reportable 05/26/21 23:19 Platelet Estimate Consistent w auto 05/26/21 23:19 Clumped Platelets Not Reportable 05/26/21 23:19 Plt Clumps, EDTA Not Reportable 05/26/21 23:19 Large Platelets Not Reportable 05/26/21 23:19 Giant Platelets Not Reportable 05/26/21 23:19 Platelet Satelliting Not Reportable 05/26/21 23:19 Plt Morphology Comment Not Reportable 05/26/21 23:19 RBC Morphology Not Reportable 05/26/21 23:19 Dimorphic RBCs Not Reportable 05/26/21 23:19 Polychromasia Not Reportable 05/26/21 23:19 Hypochromasia Not Reportable 05/26/21 23:19 Poikilocytosis Not Reportable 05/26/21 23:19 Anisocytosis 1+ 05/26/21 23:19 Microcytosis Not Reportable 05/26/21 23:19 Macrocytosis Not Reportable 05/26/21 23:19 Spherocytes Not Reportable 05/26/21 23:19 Pappenheimer Bodies Not Reportable 05/26/21 23:19 Sickle Cells Not Reportable 05/26/21 23:19 Target Cells Not Reportable 05/26/21 23:19 Tear Drop Cells Not Reportable 05/26/21 23:19 Ovalocytes Not Reportable 05/26/21 23:19 Helmet Cells Not Reportable 05/26/21 23:19 [place] Bodies Not Reportable 05/26/21 23:19 [place] Rings Not Reportable 05/26/21 23:19 [place] Cells Not Reportable 05/26/21 23:19 Bite Cells Not Reportable 05/26/21 23:19 Crenated Cell Not Reportable 05/26/21 23:19 Elliptocytes Not Reportable 05/26/21 23:19 Acanthocytes (Spur) Not Reportable 05/26/21 23:19 Rouleaux Not Reportable 05/26/21 23:19 Hemoglobin C Crystals Not Reportable 05/26/21 23:19 Schistocytes Not Reportable 05/26/21 23:19 Malaria parasites Not Reportable 05/26/21 23:19 [place] Bodies Not Reportable 05/26/21 23:19 Hem Pathologist Commnt No 05/26/21 23:19 Sodium 130 mmol/L (137-145) L 05/26/21 23:19 Potassium 5.0 mmol/L (3.6-5.0) 05/26/21 23:19 Chloride 95.1 mmol/L (98-107) L 05/26/21 23:19 Carbon Dioxide 14 mmol/L (22-30) L 05/26/21 23:19 Anion Gap 26 mmol/L 05/26/21 23:19 BUN 41 mg/dL (9-20) H 05/26/21 23:19 Creatinine 2.1 mg/dL (0.8-1.3) H 05/26/21 23:19 Estimated GFR 39 ml/min 05/26/21 23:19 BUN/Creatinine Ratio 20 % 05/26/21 23:19 Glucose 161 mg/dL (75-100) H 05/26/21 23:19 Calcium 8.8 mg/dL (8.4-10.2) 05/26/21 23:19 Total Bilirubin 0.50 mg/dL (0.1-1.2) 05/26/21 23:19 AST 39 units/L (5-40) 05/26/21 23:19 ALT 52 units/L (7-56) 05/26/21 23:19 Alkaline Phosphatase 275 units/L (35-129) H 05/26/21 23:19 Troponin T 0.029 ng/mL (0.00-0.029) 05/27/21 04:49 NT-Pro-B Natriuret Pep 9047 pg/mL (0-900) H 05/27/21 08:03 Total Protein 6.9 g/dL (6.3-8.2) 05/26/21 23:19 Albumin 4.0 g/dL (3.9-5) 05/26/21 23:19 Albumin/Globulin Ratio 1.4 % 05/26/21 23:19 Assessment and Plan Assessment and plan: Assessment and plan 1. Acute decompensated congestive heart failure -Shortness of breath, pedal edema, orthopnea, PND Etiology: Possibly newly diagnosed ischemic cardiomyopathy -Lasix 40 mg IV daily. -Daily I's and O's, daily weights -Echo ordered -Consult cardiology, discussed case with Dr. Herring this morning. 2. acute kidney injury -Possibly cardiorenal in etiology -We will trend on BMP -Avoid nephrotoxic agents -Renally dose medications 3. Coronary artery disease -Required bypass surgery in October 2020 -Continue aspirin, statin, beta-pal 4. History of coronary artery bypass graft x4 vessels -as above -Continue home Pacerone for atrial fibrillation prophylaxis. 5. Systolic ejection murmur -4 out of 6 systolic ejection murmur noted on exam radiates to carotids 6. Hypertension -Resume home antihypertensives except for ARB 7. Type 2 diabetes with hyperglycemia -Sliding scale insulin -Accu-Cheks AC at bedtime -Hypoglycemic protocol 8. Alcoholism -CIWA protocol 9. Gout -Hold allopurinol for now due to PAWAN 10. DVT prophylaxis -Renal dosing for Lovenox 30 mg subQ daily
[2021-05-27] MEDS: ENOXAPARIN 30 MG/0.3 ML INJ SUB-Q SCH (10:44)
[2021-05-27] MEDS: INSULIN REGULAR, HUMAN 100 UNITS/1 ML SUB-Q SCH ×3 (11:46→22:00)
--- NOTE | 2021-05-27 16:13 | Consultation ---
History of Present Illness Consult date: 05/27/21 Requesting physician: ARIEL LLANOS Consult reason: congestive heart failure History of present illness: Patient is a 56-year-old male with PMHx of hypertension, CAD s/p CABG x4 (10/2020), gout, type 2 diabetes presenting for SOB x 1 day. Patient reports that over last several weeks he has been feeling increasingly fatigued and short of breath. He reports that it is worse with exertion, that he cannot lay flat, and has lower extremity edema. He denies chest pain, palpitation, n/v, or lightheadedness. Patient reports that he has been traveling alot recently back and forrth from [place] and that during his trips he has been eating out and probably increase his salt intake. Past History Past Medical History: CAD, diabetes, hypertension Past Surgical History: CABG (10/2020) Social history: , other (alcohol 2-3 drinks a day) Family history: no significant family history Medications and Allergies Allergies Allergy/AdvReac Type Severity Reaction Status Date / Time seafood Allergy Hives Uncoded 05/27/21 07:23 Home Medications Medication Instructions Recorded Confirmed Last Taken Type Aspirin [Aspirin EC] 81 mg PO DAILY #30 tablet. 01/28/18 05/27/21 Unknown Rx Metformin HCl [Glucophage] 1,000 mg PO BID #60 tablet 01/28/18 05/27/21 Unknown Rx Multivitamin [Multiple Vitamins] 1 each PO DAILY #30 tablet 01/28/18 05/27/21 Unknown Rx allopurinoL [Zyloprim] 100 mg PO QDAY #30 tablet 01/28/18 05/27/21 Unknown Rx carvediloL [Coreg] 6.25 mg PO BID #60 tablet 01/28/18 05/27/21 Unknown Rx Amiodarone [Cordarone 200 MG TAB] 200 mg PO BID 05/27/21 05/27/21 Unknown Histo ry AtorvaSTATin [Lipitor] 40 mg PO QHS 05/27/21 05/27/21 Unknown History Dapagliflozin Propanediol [Farxiga] 5 mg PO QDAY 05/27/21 05/27/21 Unknown History Ferrous Sulfate [Iron 325 MG] 325 mg PO QDAY 05/27/21 05/27/21 Unknown History Furosemide [Lasix] 40 mg PO QDAY 05/27/21 05/27/21 Unknown History Metoprolol [Lopressor] 25 mg PO BID 05/27/21 05/27/21 Unknown History Potassium Chloride [K-Dur] 10 meq PO QDAY 05/27/21 05/27/21 Unknown History Sitagliptin Phosphate [Januvia] 100 mg PO QDAY 05/27/21 05/27/21 Unknown History Tadalafil [Cialis] 10 mg PO QDAY 05/27/21 05/27/21 Unknown History Active Meds: Active Medications Acetaminophen (Acetaminophen 325 Mg Tab) 650 mg PO Q4H PRN PRN Reason: Pain MILD(1-3)/Fever >100.5/BRANDON Al Hydrox/Mg Hydrox/Simethicone (Alum-Mag Hydroxide-Simethicone [id number]/5ml Oral Liqd 30 Ml) 30 ml PO Q4H PRN PRN Reason: Indigestion Dextrose (Dextrose 50% In Water (25gm) 50 Ml Syringe) 50 ml IV Q30MIN PRN; Protocol PRN Reason: Hypoglycemia Enoxaparin Sodium (Enoxaparin 30 Mg/0.3 Ml Inj) 30 mg SUB-Q QDAY [facility] Last Admin: 05/27/21 10:44 Dose: 30 mg Documented by: Furosemide (Furosemide 40 Mg/4 Ml Inj) 40 mg IV 0600,1800 [facility] Insulin Human Regular (Insulin Regular, Human 100 Units/1 Ml) 0 units SUB-Q AC HS [facility]; Protocol Last Admin: 05/27/21 11:46 Dose: 3 units Documented by: Ondansetron HCl (Ondansetron 4 Mg/2 Ml Inj) 4 mg IV Q8H PRN PRN Reason: Nausea And Vomiting Oxycodone/Acetaminophen (Oxycodone /Acetaminophen 5-325mg Tab) 1 tab PO Q6H PRN PRN Reason: Pain, Moderate (4-6) Sodium Chloride (Sodium Chloride 0.9% 10 Ml Flush Syringe) 10 ml IV BID [facility] Last Admin: 05/27/21 10:51 Dose: 10 ml Documented by: Sodium Chloride (Sodium Chloride 0.9% 10 Ml Flush Syringe) 10 ml IV PRN PRN PRN Reason: LINE FLUSH Review of Systems All systems: negative Constitutional: no weight loss, no weight gain, no fever, no chills, no sweats, no night sweats Ears, nose, mouth and throat: no ear pain, no ear discharge, no tinnitis, no decreased hearing Cardiovascular: orthopnea, edema, no chest pain, no palpitations Respiratory: shortness of breath, dyspnea on exertion, no cough, no cough with sputum, no excessive sputum, no hemoptysis Gastrointestinal: no abdominal pain, no nausea, no vomiting, no diarrhea, no constipation Musculoskeletal: no neck stiffness, no neck pain, no shooting arm pain, no arm numbness/tingling, no low back pain Integumentary: no rash, no pruritis, no redness, no sores Neurological: no head injury, no transient paralysis, no paralysis, no weakness, no parathesias Psychiatric: no anxiety Endocrine: no cold intolerance, no heat intolerance Hematologic/Lymphatic: no easy bruising, no easy bleeding Physical Examination Last Vital Signs Temp 98.6 F 05/26/21 22:02 Pulse 61 05/27/21 15:00 Resp 16 05/27/21 15:00 BP 139/62 05/27/21 15:00 Pulse Ox 100 05/27/21 15:00 General appearance: no acute distress HEENT: Positive: PERRL Neck: Positive: trachea midline Cardiac: Positive: Reg Rate and Rhythm, S3, S4 Lungs: Positive: Normal Breath Sounds Neuro: Positive: Grossly Intact Abdomen: Positive: Soft, Active Bowel Sounds Extremities: Present: normal, upper extr. pulses, lower extr. pulses, +2 Edema, +3 Edema Results 05/26/21 23:19 05/28/21 05:31 Cardiac Enzymes 05/26/21 Range/Units 23:19 AST 39 (5-40) units/L CBC 05/26/21 Range/Units 23:19 WBC 4.2 L (4.5-11.0) K/mm3 RBC 3.96 (3.65-5.03) M/mm3 Hgb 9.8 L (11.8-15.2) gm/dl Hct 31.0 L (35.5-45.6) % Plt Count 176 (140-440) K/mm3 Comprehensive Metabolic Panel 05/26/21 Range/Units 23:19 Sodium 130 L (137-145) mmol/L Potassium 5.0 (3.6-5.0) mmol/L Chloride 95.1 L (98-107) mmol/L Carbon Dioxide 14 L (22-30) mmol/L BUN 41 H (9-20) mg/dL Creatinine 2.1 H (0.8-1.3) mg/dL Glucose 161 H (75-100) mg/dL Calcium 8.8 (8.4-10.2) mg/dL AST 39 (5-40) units/L ALT 52 (7-56) units/L Alkaline Phosphatase 275 H (35-129) units/L Total Protein 6.9 (6.3-8.2) g/dL Albumin 4.0 (3.9-5) g/dL - Imaging and Cardiology EKG: report reviewed, image reviewed EKG interpretations - Telemetry EKG Rhythm: Sinus Rhythm - EKG Sinus rhythms and dysrhythmias: sinus rhythm Assessment and Plan HFrEF * EF is unknown. Echo pending * Agree with IV Lasix 40mg BID. Strict I/Os. Closely monitor renal indices CAD s/p CABGx4 10/2020 * Resume Asprin 81mg, clopidegrel 75mg Po, atorvastatin 40mgQhs HTN * Optimize hypertensive regimen. Initiated Coreg 6.25mg BID Signed by Getachew Hoff NP Patient seen in conjunction with Dr. Herring who agrees with plan. We will continue to follow - Patient Problems (1) CHF (congestive heart failure) Current Visit: Yes Status: Acute Qualifiers: Heart failure type: unspecified Heart failure chronicity: acute Qualified Code(s): I50.9 - Heart failure, unspecified (2) PAWAN (acute kidney injury) Current Visit: Yes Status: Acute (3) Gout Current Visit: No Status: Acute Qualifiers: Gout site: elbow Laterality: left (4) HTN (hypertension) Current Visit: Yes Status: Chronic Qualifiers: Hypertension type: primary hypertension Qualified Code(s): I10 - Essential (primary) hypertension
[2021-05-27] MEDS: FUROSEMIDE 40 MG/4 ML INJ IV SCH (17:48)
[2021-05-27] MEDS: carvediloL 6.25 MG TAB PO SCH (21:59)
[2021-05-28] MEDS: FUROSEMIDE 40 MG/4 ML INJ IV SCH ×2 (05:56→18:51)
[2021-05-28 06:31] LABS: BUN/Creatinine Ratio 22; Blood Urea Nitrogen 29 mg/dL (9-20); Calcium 9.1 mg/dL (8.4-10.2); Hemolysis Index 33
--- NOTE | 2021-05-28 08:32 | Progress Note ---
Assessment and Plan Echo pending. Continue IV diuresis today. Will transition to PO Lasix in AM (40mg daily). Continue Coreg 6.25mg BID. May consider addition of ACEI/ARB if renal fxn remains stable. Will discontinue Amiodarone. There is no clear indication for pt to be on PO Amio. Anticipate likely discharge in AM from a Cardiology standpoint. Recommend close follow-up with Primary Sensor Operator in [place] upon discharge. Pt verbalized understanding. Signed by: Camila Archer NP Pt seen in conjunction with Dr. Herring, who agrees with the assessment and plan of care. - Patient Problems (1) Acute on chronic heart failure Current Visit: Yes Status: Acute Qualifiers: Heart failure type: unspecified Qualified Code(s): I50.9 - Heart failure, unspecified (2) PAWAN (acute kidney injury) Current Visit: Yes Status: Acute (3) CKD (chronic kidney disease) Current Visit: Yes Status: Suspected (4) Hyponatremia Current Visit: Yes Status: Acute (5) CAD (coronary artery disease) Current Visit: Yes Status: Chronic Qualifiers: Coronary Disease-Associated Artery/Lesion type: unspecified vessel or lesion type [place] vs. transplanted heart: ka[place]ab heart Associated angina: without angina Qualified Code(s): I25.10 - Atherosclerotic heart disease of [place] coronary artery without angina pectoris (6) S/P CABG x 4 Current Visit: Yes Status: Chronic (7) HTN (hypertension) Current Visit: Yes Status: Chronic Qualifiers: Hypertension type: primary hypertension Qualified Code(s): I10 - Essential (primary) hypertension (8) DM2 (diabetes mellitus, type 2) Current Visit: Yes Status: Chronic (9) ETOH abuse Current Visit: Yes Status: Chronic Subjective Date of service: 05/28/21 Principal diagnosis: A/C HF?EF Interval history: States he feels much better today. Denies SOB or any additional cardiac com plaints. Tele reviewed - SR 55-60s, no events overnight. Objective Last Vital Signs Temp 97.7 F 05/28/21 05:35 Pulse 76 05/28/21 11:56 Resp 18 05/28/21 05:35 BP 148/71 05/28/21 05:35 Pulse Ox 97 05/28/21 05:35 - Physical Examination General: No Apparent Distress HEENT: Positive: EOMI, Normocephaly Neck: Positive: neck supple, trachea midline. Negative: JVD/HJR Cardiac: Positive: Reg Rate and Rhythm, S1/S2 Lungs: Positive: clear to auscultation Neuro: Positive: Grossly Intact Abdomen: Positive: Soft. Negative: Tender Skin: Negative: Rash Musculoskeletal: No Pain Extremities: Present: upper extr. pulses, lower extr. pulses, edema (trace BLE) - Labs and Meds Comprehensive Metabolic Panel 05/28/21 Range/Units 05:31 Sodium 135 L (137-145) mmol/L Potassium 3.9 D (3.6-5.0) mmol/L Chloride 97.8 L (98-107) mmol/L Carbon Dioxide 25 D (22-30) mmol/L BUN 29 H (9-20) mg/dL Creatinine 1.3 (0.8-1.3) mg/dL Glucose 143 H (75-100) mg/dL Calcium 9.1 (8.4-10.2) mg/dL - Imaging and Cardiology EKG: report reviewed, image reviewed Echo: pending - Telemetry EKG Rhythm: Sinus Rhythm - EKG Sinus rhythms and dysrhythmias: sinus rhythm
--- NOTE | 2021-05-28 08:49 | Progress Note ---
Assessment and Plan Assessment and plan: Assessment and plan 1. Acute decompensated congestive heart failure -Shortness of breath, pedal edema, orthopnea, PND Etiology: Possibly newly diagnosed ischemic cardiomyopathy -Lasix 40 mg IV daily, transition to p.o. tomorrow -Guideline directed therapy with Coreg. Holding ARB at this time due to renal insufficiency. Additional agents per cardiology team -Daily I's and O's, daily weights -Echo ordered, pending completion and official read -Cardiology following, cardiology plan from today noted 2. acute kidney injury -Possibly cardiorenal in etiology -We will trend on BMP -Avoid nephrotoxic agents -Renally dose medications 3. Coronary artery disease -Required bypass surgery in October 2020 -Continue aspirin, statin, beta-pal 4. History of coronary artery bypass graft x4 vessels -as above -Discontinue home amiodarone. 5. Systolic ejection murmur -4 out of 6 systolic ejection murmur noted on exam radiates to carotids 6. Hypertension -Resume home antihypertensives except for ARB 7. Type 2 diabetes with hyperglycemia -Sliding scale insulin -Accu-Cheks AC at bedtime -Hypoglycemic protocol 8. Alcoholism -CIWA protocol 9. Gout -Hold allopurinol for now due to PAWAN 10. DVT prophylaxis -Renal dosing for Lovenox 30 mg subQ daily History Interval history: 05/28/2021: Patient doing well on encounter today. Still awaiting echo results. Cardiology plan to DC amiodarone. Transition to p.o. Lasix tomorrow and potentially discharge. Patient can follow-up with cardiology in [facility]. He states that he plans to leave sometime this month or early next month. Hospitalist Physical - Physical exam Narrative exam: Physical Exam: GENERAL APPEARANCE: Well developed, well nourished, alert and cooperative, and appears to be in no acute distress. HEAD: normocephalic. EYES: PERRL, EOMI. Vision is grossly intact. EARS: No gross deformities NOSE: No nasal discharge. THROAT: Oral cavity and pharynx normal. No inflammation, swelling, exudate, or lesions. Teeth and gingiva in good general condition. NECK: Neck supple, non-tender without lymphadenopathy, masses or thyromegaly. CARDIAC: Midline surgical scar from prior procedure. Normal S1 and S2. No S3, S4. 4 out of 6 systolic ejection murmur radiating to carotids. Rhythm is regular. There is no peripheral edema, cyanosis or pallor. Extremities are warm and well perfused. Capillary refill is less than 2 seconds. No carotid bruits. LUNGS: Clear to auscultation and percussion without rales, rhonchi, wheezing or diminished breath sounds. ABDOMEN: Positive bowel sounds. Soft, nondistended, nontender. No guarding or rebound. No masses. MUSKULOSKELETAL: Adequately aligned spine. ROM intact spine and extremities. No joint erythema or tenderness. Normal muscular development. Normal gait. BACK: Examination of the spine reveals normal gait and posture EXTREMITIES: No significant deformity or joint abnormality. Bilateral 2+ pitting edema ankles to knees. Peripheral pulses intact. No varicosities. NEUROLOGICAL: CN II-XII intact. Strength and sensation symmetric and intact throughout. Reflexes 2+ throughout. PSYCHIATRIC: The mental examination revealed the patient was oriented to person, place, and time. - Constitutional Vitals: Temp Pulse Resp BP Pulse Ox 97.7 F 63 18 148/71 97 05/28/21 05:35 05/28/21 05:35 05/28/21 05:35 05/28/21 05:35 05/28/21 05:35 General appearance: Present: no acute distress HEART Score - HEART Score Troponin: Troponin T 0.029 ng/mL (0.00-0.029) 05/27/21 04:49 Results - Labs CBC & Chem 7: 05/26/21 23:19 05/28/21 05:31 Labs: Laboratory Last Values WBC 4.2 K/mm3 (4.5-11.0) L 05/26/21 23:19 RBC 3.96 M/mm3 (3.65-5.03) 05/26/21 23:19 Hgb 9.8 gm/dl (11.8-15.2) L 05/26/21 23:19 Hct 31.0 % (35.5-45.6) L 05/26/21 23:19 MCV 78 fl (84-94) L 05/26/21 23:19 MCH 25 pg (28-32) L 05/26/21 23:19 MCHC 32 % (32-34) 05/26/21 23:19 RDW 17.7 % (13.2-15.2) H 05/26/21 23:19 Plt Count 176 K/mm3 (140-440) 05/26/21 23:19 [place]linger % (Auto) Building Maintenance Technician 05/26/21 23:19 Add Manual Diff Complete 05/26/21 23:19 Total Counted 100 05/26/21 23:19 Seg Neuts % (Manual) 63.0 % (40.0-70.0) 05/26/21 23:19 Band Neutrophils % 1.0 % 05/26/21 23:19 Lymphocytes % (Manual) 21.0 % (13.4-35.0) 05/26/21 23:19 Monocytes % (Manual) 5.0 % (0.0-7.3) 05/26/21 23:19 Eosinophils % (Manual) 9.0 % (0.0-4.3) H 05/26/21 23:19 Basophils % (Manual) 1.0 % (0.0-1.8) 05/26/21 23:19 Nucleated RBC % Not Reportable 05/26/21 23:19 Seg Neutrophils # Man 2.6 K/mm3 (1.8-7.7) 05/26/21 23:19 Band Neutrophils # 0.0 K/mm3 05/26/21 23:19 Lymphocytes # (Manual) 0.9 K/mm3 (1.2-5.4) L 05/26/21 23:19 Abs React Lymphs (Man) 0.0 K/mm3 05/26/21 23:19 Monocytes # (Manual) 0.2 K/mm3 (0.0-0.8) 05/26/21 23:19 Eosinophils # (Manual) 0.4 K/mm3 (0.0-0.4) 05/26/21 23:19 Basophils # (Manual) 0.0 K/mm3 (0.0-0.1) 05/26/21 23:19 Metamyelocytes # 0.0 K/mm3 05/26/21 23:19 Myelocytes # 0.0 K/mm3 05/26/21 23:19 Promyelocytes # 0.0 K/mm3 05/26/21 23:19 Blast Cells # 0.0 K/mm3 05/26/21 23:19 WBC Morphology Not Reportable 05/26/21 23:19 Hypersegmented Neuts Not Reportable 05/26/21 23:19 Hyposegmented Neuts Not Reportable 05/26/21 23:19 Hypogranular Neuts Not Reportable 05/26/21 23:19 Smudge Cells Not Reportable 05/26/21 23:19 Toxic Granulation Not Reportable 05/26/21 23:19 Toxic Vacuolation Not Reportable 05/26/21 23:19 Dohle Bodies Not Reportable 05/26/21 23:19 Pelger-Huet Anomaly Not Reportable 05/26/21 23:19 Marisol Rods Not Reportable 05/26/21 23:19 Platelet Estimate Consistent w auto 05/26/21 23:19 Clumped Platelets Not Reportable 05/26/21 23:19 Plt Clumps, EDTA Not Reportable 05/26/21 23:19 Large Platelets Not Reportable 05/26/21 23:19 Giant Platelets Not Reportable 05/26/21 23:19 Platelet Satelliting Not Reportable 05/26/21 23:19 Plt Morphology Comment Not Reportable 05/26/21 23:19 RBC Morphology Not Reportable 05/26/21 23:19 Dimorphic RBCs Not Reportable 05/26/21 23:19 Polychromasia Not Reportable 05/26/21 23:19 Hypochromasia Not Reportable 05/26/21 23:19 Poikilocytosis Not Reportable 05/26/21 23:19 Anisocytosis 1+ 05/26/21 23:19 Microcytosis Not Reportable 05/26/21 23:19 Macrocytosis Not Reportable 05/26/21 23:19 Spherocytes Not Reportable 05/26/21 23:19 Pappenheimer Bodies Not Reportable 05/26/21 23:19 Sickle Cells Not Reportable 05/26/21 23:19 Target Cells Not Reportable 05/26/21 23:19 Tear Drop Cells Not Reportable 05/26/21 23:19 Ovalocytes Not Reportable 05/26/21 23:19 Helmet Cells Not Reportable 05/26/21 23:19 Beavers-Parc Bodies Not Reportable 05/26/21 23:19 Laurel Rings Not Reportable 05/26/21 23:19 Ginna Cells Not Reportable 05/26/21 23:19 Bite Cells Not Reportable 05/26/21 23:19 Crenated Cell Not Reportable 05/26/21 23:19 Elliptocytes Not Reportable 05/26/21 23:19 Acanthocytes (Spur) Not Reportable 05/26/21 23:19 Rouleaux Not Reportable 05/26/21 23:19 Hemoglobin C Crystals Not Reportable 05/26/21 23:19 Schistocytes Not Reportable 05/26/21 23:19 Malaria parasites Not Reportable 05/26/21 23:19 Ruslan Bodies Not Reportable 05/26/21 23:19 Hem Pathologist Commnt No 05/26/21 23:19 Sodium 135 mmol/L (137-145) L 05/28/21 05:31 Potassium 3.9 mmol/L (3.6-5.0) D 05/28/21 05:31 Chloride 97.8 mmol/L (98-107) L 05/28/21 05:31 Carbon Dioxide 25 mmol/L (22-30) D 05/28/21 05:31 Anion Gap 16 mmol/L 05/28/21 05:31 BUN 29 mg/dL (9-20) H 05/28/21 05:31 Creatinine 1.3 mg/dL (0.8-1.3) 05/28/21 05:31 Estimated GFR > 60 ml/min 05/28/21 05:31 BUN/Creatinine Ratio 22 % 05/28/21 05:31 Glucose 143 mg/dL (75-100) H 05/28/21 05:31 POC Glucose 190 mg/dL (70-105) H 05/27/21 21:51 Calcium 9.1 mg/dL (8.4-10.2) 05/28/21 05:31 Magnesium 2.20 mg/dL (1.7-2.3) 05/27/21 08:03 Total Bilirubin 0.50 mg/dL (0.1-1.2) 05/26/21 23:19 AST 39 units/L (5-40) 05/26/21 23:19 ALT 52 units/L (7-56) 05/26/21 23:19 Alkaline Phosphatase 275 units/L (35-129) H 05/26/21 23:19 Troponin T 0.029 ng/mL (0.00-0.029) 05/27/21 04:49 NT-Pro-B Natriuret Pep 9047 pg/mL (0-900) H 05/27/21 08:03 Total Protein 6.9 g/dL (6.3-8.2) 05/26/21 23:19 Albumin 4.0 g/dL (3.9-5) 05/26/21 23:19 Albumin/Globulin Ratio 1.4 % 05/26/21 23:19 Carnes/IV: Voiding Method Toilet Active Medications - Current Medications Current Medications: Generic Name Dose Route Start Last Admin Trade Name Freq PRN Reason Stop Dose Admin Acetaminophen 650 mg 05/27/21 09:56 Acetaminophen 325 Mg Tab PO Q4H PRN Pain MILD(1-3)/Fever >100.5/BRANDON Al Hydrox/Mg Hydrox/Simethicone 30 ml 05/27/21 09:56 Alum-Mag Hydroxide-Simethicone [phone]/5ml Oral Liqd 30 Ml PO Q4H PRN Indigestion Amiodarone HCl 200 mg 05/28/21 10:00 Amiodarone 200 Mg Tab PO DAILY RENÉE Aspirin 81 mg 05/28/21 10:00 Aspirin 81 Mg Tab Chew PO QDAY RENÉE Atorvastatin Calcium 40 mg 05/27/21 22:00 05/27/21 22:00 Atorvastatin 40 Mg Tab PO 40 mg QHS RENÉE Administration Carvedilol 6.25 mg 05/27/21 22:00 05/27/21 21:59 Carvedilol 6.25 Mg Tab PO 6.25 mg BID RENÉE Administration Clopidogrel Bisulfate 75 mg 05/28/21 10:00 Clopidogrel 75 Mg Tab PO QDAY RENÉE Dextrose 50 ml 05/27/21 09:56 Dextrose 50% In Water (25gm) 50 Ml Syringe IV Q30MIN PRN Hypoglycemia Protocol Enoxaparin Sodium 30 mg 05/27/21 10:00 05/27/21 10:44 Enoxaparin 30 Mg/0.3 Ml Inj SUB-Q 30 mg QDAY RENÉE Administration Furosemide 40 mg 05/27/21 18:00 05/28/21 05:56 Furosemide 40 Mg/4 Ml Inj IV 40 mg 0600,1800 RENÉE Administration Insulin Human Regular 0 units 05/27/21 11:30 05/27/21 22:00 Insulin Regular, Human 100 Units/1 Ml SUB-Q 3 units ACHS RENÉE Administration Protocol Ondansetron HCl 4 mg 05/27/21 09:56 Ondansetron 4 Mg/2 Ml Inj IV Q8H PRN Nausea And Vomiting Oxycodone/Acetaminophen 1 tab 05/27/21 09:56 Oxycodone /Acetaminophen 5-325mg Tab PO Q6H PRN Pain, Moderate (4-6) Sodium Chloride 10 ml 05/27/21 10:00 05/28/21 05:56 Sodium Chloride 0.9% 10 Ml Flush Syringe IV 10 ml BID RENÉE Administration Sodium Chloride 10 ml 05/27/21 09:56 Sodium Chloride 0.9% 10 Ml Flush Syringe IV PRN PRN LINE FLUSH
[2021-05-28] MEDS ORDERED: AMIODARONE 200 MG TAB PO SCH (10:00)
[2021-05-28] MEDS: ENOXAPARIN 30 MG/0.3 ML INJ SUB-Q SCH (11:56)
[2021-05-28] MEDS: ASPIRIN 81 MG TAB CHEW PO SCH (11:56)
[2021-05-28] MEDS: CLOPIDOGREL 75 MG TAB PO SCH (11:56)
[2021-05-28] MEDS: carvediloL 6.25 MG TAB PO SCH ×2 (11:56→22:29)
[2021-05-28] MEDS: INSULIN REGULAR, HUMAN 100 UNITS/1 ML SUB-Q SCH ×4 (12:00→22:53)
[2021-05-29] MEDS: FUROSEMIDE 40 MG/4 ML INJ IV SCH (05:40)
[2021-05-29] MEDS ORDERED: ENOXAPARIN 40 MG/0.4 ML INJ SUB-Q SCH (10:00)
[2021-05-29] MEDS: carvediloL 6.25 MG TAB PO SCH (11:10)
[2021-05-29] MEDS: ASPIRIN 81 MG TAB CHEW PO SCH (11:10)
[2021-05-29] MEDS: CLOPIDOGREL 75 MG TAB PO SCH (11:11)
--- NOTE | 2021-05-29 11:57 | Discharge Summary ---
Providers - Providers Date of Admission: 05/27/21 09:56 Date of discharge: 05/29/21 Attending physician: ARIEL LLANOS MD 05/27/21 09:33 Consult to Cardiology [CONS] Routine Consulting Provider: DAVID CASTANON Reason For Exam: CHF, recent bypass surgery Primary care physician: [facility] Hospitalization Reason for admission: Acute decompensated heart failure Condition: Fair Hospital course: History of present illness: Meek Ames is a 56-year-old male with past medical history of hypertension, CAD status post CABG x4, gout, type 2 diabetes presenting for acute complaint of shortness of breath. Patient states that onset was yesterday. He has been feeling progressively more fatigued and short of breath however over the last few weeks. He states that he has associated orthopnea, PND, lower extremity edema. He also has dyspnea on exertion stating that going up the driveway can be difficult for him. He denied any chest pain, jaw pain, nausea, vomiting, shoulder pain, hematuria, abdominal pain, peripheral nerve pain. Of note patient is a resident of [facility]. He has been in the [facility] area due to the passing of his mother in October. He had a recent CABG procedure with four-vessel bypass in October 2020. 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 He has no remote history of PE, DVT, stroke. He is currently on Pacerone for A. fib prophylaxis post CABG, but does not have a prior history of atrial fibrillation. ED Course: Lasix 40 mg x 1, aspirin x1 PMHx: HTN, CAD status post CABG x4 vessels, type 2 diabetes, gout, alcoholism PSHx: CABG x4 vessels in October 2020 FHx: Motherheart disease SHx: Non-smoker, alcohol (6 pack/day), denies rec drugs, from [place], [place] gets primary care and cardiology needs there. Assessment and plan: Assessment and plan 1. Acute decompensated congestive heart failure -Shortness of breath, pedal edema, orthopnea, PND Etiology: Possibly newly diagnosed ischemic cardiomyopathy -Lasix 40 mg IV daily, transition to p.o. tomorrow -Guideline directed therapy with Coreg. Holding ARB at this time due to renal insufficiency. Additional agents per cardiology team -Daily I's and O's, daily weights -Echo ordered, pending completion and official read -Cardiology following, cardiology plan from today noted 2. acute kidney injury -Possibly cardiorenal in etiology -We will trend on BMP -Avoid nephrotoxic agents -Renally dose medications 3. Coronary artery disease -Required bypass surgery in October 2020 -Continue aspirin, statin, beta-pal 4. History of coronary artery bypass graft x4 vessels -as above -Discontinue home amiodarone. 5. Systolic ejection murmur -4 out of 6 systolic ejection murmur noted on exam radiates to carotids 6. Hypertension -Resume home antihypertensives except for ARB 7. Type 2 diabetes with hyperglycemia -Sliding scale insulin -Accu-Cheks AC at bedtime -Hypoglycemic protocol 8. Alcoholism -CIWA protocol 9. Gout -Hold allopurinol for now due to PAWAN 10. DVT prophylaxis -Renal dosing for Lovenox 30 mg subQ daily History Interval history: 05/28/2021: Patient doing well on encounter today. Still awaiting echo results. Cardiology plan to DC amiodarone. Transition to p.o. Lasix tomorrow and potentially discharge. Patient can follow-up with cardiology in [facility]. He states that he plans to leave sometime this month or early next month. Disposition: DC-01 TO HOME OR SELFCARE Final Discharge Diagnosis (Prints w/discharge instructions): Congestive Heart Failure Time spent for discharge: 55 - Discharge Diagnoses (1) Acute on chronic heart failure Status: Acute Qualifiers: Heart failure type: unspecified Qualified Code(s): I50.9 - Heart failure, unspecified (2) Acute renal failure Status: Acute Qualifiers: Acute renal failure type: unspecified Qualified Code(s): N17.9 - Acute kidney failure, unspecified (3) CAD (coronary artery disease) Status: Chronic Qualifiers: Coronary Disease-Associated Artery/Lesion type: unspecified vessel or lesion type [place] vs. transplanted heart: [place] heart Associated angina: without angina Qualified Code(s): I25.10 - Atherosclerotic heart disease of [place] coronary artery without angina pectoris (4) DM2 (diabetes mellitus, type 2) Status: Chronic (5) HTN (hypertension) Status: Chronic Qualifiers: Hypertension type: primary hypertension Qualified Code(s): I10 - Essential (primary) hypertension (6) S/P CABG x 4 Status: Chronic Core Measure Documentation - Palliative Care Palliative Care/ Comfort Measures: Not Applicable - Core Measures Any of the following diagnoses?: heart failure - Heart Failure Discharge Requirements TEMO/ARB for LVSD if EF <40%: No Reason for no TEMO/ARB: Renal impairment Beta pal at discharge: Yes Exam - Constitutional Vitals: Temp Pulse Resp BP Pulse Ox 97.9 F 54 L 18 142/68 96 05/29/21 07:44 05/29/21 11:10 05/29/21 07:44 05/29/21 07:44 05/29/21 07:44 Plan Plan of Treatment: Meek Ames. You were admitted for acute decompensated heart failure and acute kidney injury. You were found to have fluid in your lungs and in your legs so we gave you a diuretic to help you remove that fluid. We consulted cardiology who completed work-up with an echocardiogram which demonstrated an ejection fraction (heart function) of 35 to 40%, which is abnormal. They recommended optimization of your cardiac medicines and follow-up with your rice farmer in [facility]. We believe your kidney function was reduced due to the issues with your heart. This is a condition called cardiorenal syndrome. Once we removed fluid with diuretics, your kidney function stabilized. The cardiology team also noticed you are on amiodarone. They recognized that currently there is no indication for you to take this medication anymore and to discontinue it. Furthermore please discontinue allopurinol due to your decreased kidney function. Please avoid any NSAIDs like ibuprofen, Advil, Aleve, Motrin. You can resume this at the discretion of your primary care doctor and rice farmer. We recommend you follow-up as soon as possible with both your primary care physician and your rice farmer. We will be sending you home with prescriptions until you make it to your appointments. Follow up with: PRIMARY CARE, [Primary Care Provider] - 3-5 Days Prescriptions: AtorvaSTATin [Lipitor] 40 mg PO QHS 30 Days #30 tablet Aspirin [Aspirin BABY CHEW TAB] 81 mg PO QDAY 30 Days #30 tab.chew carvediloL [Coreg] 6.25 mg PO BID 30 Days #30 tablet Furosemide [Lasix TAB] 40 mg PO DAILY@0600 30 Days #30 tablet Clopidogrel [Plavix] 75 mg PO QDAY 30 Days #30 tablet
[2021-05-29 12:08] VITALS: BP 127/65
--- NOTE | 2021-05-29 15:54 | Progress Note ---
Assessment and Plan Heart failure reduced ejection fraction in setting of dilated cardiomyopathy * Echocardiogram 05/27/2021: LVEF is 35 to 40%. LV mildly dilated. LV SF moderately decreased. Hypokinesis in the septal/inferior wall. Severe diastolic dysfunction noted. RV mild to moderately dilated, hypokinetic. LA severely dilated. RA mildly dilated. Borderline AAS highest mean gradient 8.68 mmHg. Trace to mild MR. Trace to mild TR, RVSP 28 mmHg. Mild MN. * Patient is nearing euvolemia. Optimize volume control: Lasix to 40 mg p.o. daily. Continue strict I/O's. Repeat BMP in a.m. * GDMT: ASA 81, atorvastatin 40, Coreg 6.25 twice daily. No TEMO/ARB in setting of PAWAN. 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 Currently in stable cardiac status. Patient may discharge from cardiology standpoint. Will follow on as-needed basis. Patient should follow-up with his established primary cardiology in [facility] within 1 to 2 weeks of discharge. Alternately patient may follow-up with Dr. Richard Herring, [facility] heart specialists as needed. #[phone] This patient was seen in conjunction with Dr Venegas who agrees with this assessment and plan of care - Patient Problems (1) Acute on chronic heart failure Current Visit: Yes Status: Acute Qualifiers: Heart failure type: unspecified Qualified Code(s): I50.9 - Heart failure, unspecified (2) PAWAN (acute kidney injury) Current Visit: Yes Status: Acute (3) CKD (chronic kidney disease) Current Visit: Yes Status: Suspected (4) Hyponatremia Current Visit: Yes Status: Acute (5) CAD (coronary artery disease) Current Visit: Yes Status: Chronic Qualifiers: Coronary Disease-Associated Artery/Lesion type: unspecified vessel or lesion type [place] vs. transplanted heart: [place] heart Associated angina: without angina Qualified Code(s): I25.10 - Atherosclerotic heart disease of [place] coronary artery without angina pectoris (6) S/P CABG x 4 Current Visit: Yes Status: Chronic (7) HTN (hypertension) Current Visit: Yes Status: Chronic Qualifiers: Hypertension type: primary hypertension Qualified Code(s): I10 - Essential (primary) hypertension (8) DM2 (diabetes mellitus, type 2) Current Visit: Yes Status: Chronic (9) ETOH abuse Current Visit: Yes Status: Chronic Subjective Date of service: 05/29/21 Principal diagnosis: A/C HF?EF Interval history: Patient resting comfortably in bed. No chest pain or shortness of breath overnight. Telemetry reviewed: Sinus rhythm 61. No events Objective Last Vital Signs Temp 98.3 F 05/29/21 10:59 Pulse 54 L 05/29/21 11:10 Resp 16 05/29/21 10:59 BP 127/65 05/29/21 10:59 Pulse Ox 98 05/29/21 10:59 - Physical Examination General: No Apparent Distress HEENT: Positive: EOMI, Normocephaly Neck: Positive: neck supple, trachea midline. Negative: JVD/HJR Cardiac: Positive: Reg Rate and Rhythm, S1/S2 Lungs: Positive: Normal Exam, Normal Breath Sounds Neuro: Positive: Grossly Intact Abdomen: Positive: Soft. Negative: Tender Skin: Negative: Rash Musculoskeletal: No Pain Extremities: Present: upper extr. pulses, lower extr. pulses, edema (trace BLE) - Imaging and Cardiology EKG: report reviewed, image reviewed Echo: report reviewed (Echocardiogram 05/27/2021: LVEF is 35 to 40%. LV mildly dilated. LV SF moderately decreased. Hypokinesis in the septal/inferior wall. Severe diastolic dysfunction noted. RV mild to moderately dilated, hypokinetic. LA severely dilated. RA mildly dilated. Borderline AAS highest mean gradient 8.) - Telemetry EKG Rhythm: Sinus Rhythm - EKG Sinus rhythms and dysrhythmias: sinus rhythm
[2021-05-30] MEDS ORDERED: FUROSEMIDE 40 MG TAB PO SCH (06:00)
--- NOTE | 2021-05-30 09:09 | Electrocardiograph Report ---
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
--- NOTE | 2021-05-30 10:20 | Electrocardiograph Report ---
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
== END 2021-05-29 14:00 | disposition home or self-care (01) | DRG 291 ==
LOC: ED 20:52 → 4A 05-27 04:57 → OBSVTOIN 05-27 09:56 → 4A 05-27 22:00
PROVIDERS: ADMIT Hospitalist; ATTEND Internal Medicine
DX: I13.0 Hypertensive heart and chronic kidney disease with heart failure and stage 1 through stage 4 chronic kidney disease, or unspecified chronic kidney disease (principal); I50.21 Acute systolic (congestive) heart failure; N17.9 Acute kidney failure, unspecified; E87.1 Hypo-osmolality and hyponatremia; I25.5 Ischemic cardiomyopathy; E11.22 Type 2 diabetes mellitus with diabetic chronic kidney disease; R01.1 Cardiac murmur, unspecified; E11.65 Type 2 diabetes mellitus with hyperglycemia; M10.9 Gout, unspecified; I25.10 Atherosclerotic heart disease of native coronary artery without angina pectoris; N18.9 Chronic kidney disease, unspecified; Z91.013 Allergy to seafood; Z79.4 Long term (current) use of insulin; Z95.1 Presence of aortocoronary bypass graft; Z82.49 Family history of ischemic heart disease and other diseases of the circulatory system; F10.20 Alcohol dependence, uncomplicated
CPT/HCPCS: 36415; 71046; 80048; 80053; 82962; 83735; 83880; 84484; 85007; 85025; 93005; 93306; 96374; 96375; G0378; A9270-GY; J1650; J1815; J1940